=== PATIENT | male | born 1965 | race Caucasian/White ===

== ENCOUNTER → 2019-05-25 09:23 | Outpatient (CLI) | payer BC, OTHER, SELFPAY ==
[2019-05-25 10:13] LABS: Basophils Absolute Auto 0 /uL (0-100); Eosinophils Absolute Auto 200 /uL (0-450); Lymphocytes Absolute Auto 1300 /uL (1100-4500); Neutrophils Absolute Auto 2200 /uL (1500-7000); White Blood Cell Count 4.4 X10^3/uL (4.5-11.0)
[2019-05-25 10:21] LABS: Add Manual Diff / Slide Review NO; Basophils Percent Auto 0.6 % (0-2); Eosinophils Percent Auto 4.5 % (2-4); Hematocrit 45.6 % (41-53); Hemoglobin 15.8 g/dL (13.5-17.5); Lymphocytes Percent Auto 29.4 % (25-40); Mean Corpuscular HGB Conc 34.6 % (30-36); Mean Corpuscular Hemoglobin 31.8 PG (26-34); Mean Corpuscular Volume 92.1 fL (80-100); Monocytes Absolute Auto 600 /uL (0-900); Monocytes Percent Auto 14.5 % (3-14); Platelet Count 266 X10^3/uL (150-400); Red Blood Cell Count 4.95 X10^6/uL (4.5-5.9); Red Cell Distribution Width 13.2 % (11.6-14.8)
[2019-05-25 10:51] LABS: Alanine Aminotransferase 45 IU/L (<50); Albumin 4.3 g/dL (3.5-5.0); Albumin Globulin Ratio 1.7 (1.0-2.8); Alkaline Phosphatase 54 U/L (38-126); Aspartate Aminotransferase 42 IU/L (17-59); BUN Creatinine Ratio 13.6 (6-22); Bilirubin Total 0.6 mg/dL (0.2-1.3); Blood Urea Nitrogen 15 mg/dL (9-20); Calcium 9.8 mg/dL (8.4-10.2); Carbon Dioxide 28 mmol/L (22-32); Chloride 102 mmol/L (98-107); Cholesterol 180 mg/dL (140-199); Estimated Glomerular Filt Rate > 60.0 mL/min (>60); Globulin 2.6 g/dL (1.7-4.1); Glucose 94 mg/dL (70-100); HDL Cholesterol 44 mg/dL (40-60); HEMOLYSIS < 15 (0-50); LDL Cholesterol Calculated 106 mg/dL (<100); Potassium 4.2 mmol/L (3.4-5.1); Sodium 139 mmol/L (137-145); Total Protein 6.9 g/dL (6.3-8.2); Triglycerides 151 mg/dL (35-150)
[2019-05-25 11:03] LABS: Free T3, Triiodothyronine Free 4.51 pg/mL (2.77-5.27); Free T4, Direct Thyroxine 1.07 ng/dL (0.78-2.19)
[2019-05-25 11:15] LABS: Prostate Specific Antigen 0.669 ng/mL (0.10-4.00)
[2019-05-25 11:16] LABS: Thyroid Stimulating Hormone 3.21 uIU/mL (0.47-4.68)
[2019-05-25 11:34] LABS: Creatinine Urine Random 132.5 mg/dL
[2019-05-25 11:39] LABS: Microalbumi Creatinin Ratio Ur 4.5 ug/mg CR (<30); Microalbumin Urine Random < 0.6 mg/dL (0-1.6)
== END ==
PROVIDERS: Family Provider Family Medicine; PCP Nurse Practitioner; Visit Provider Nurse Practitioner
DX: I10 Essential (primary) hypertension (principal); Z00.00 Encounter for general adult medical examination without abnormal findings
CPT/HCPCS: 36415; 80053; 80061; 82043; 82570; 84153; 84439; 84443; 84481; 85025

== ENCOUNTER 2020-05-11 09:40 | Emergency (ER) | payer BC, OTHER, SELFPAY ==
[2020-05-11 09:42] VITALS: BP 128/79; PULSE 65; RESP 14; TEMP 35.9; O2SAT 100; BMI 29.0
[2020-05-11 09:45] VITALS: BP 128/79; PULSE 65; O2SAT 100
[2020-05-11 10:00] VITALS: BP 127/69; PULSE 58; RESP 20; O2SAT 100
--- NOTE | 2020-05-11 10:27 | ED.DIZZY ---
HPI - Dizziness General Chief Complaint: Dizziness Stated Complaint: vertigo x3 days Time Seen by Provider: 05/11/20 10:15 Source: patient Mode of arrival: Ambulatory Limitations: no limitations History of Present Illness HPI Narrative: This is a 54-year-old male who comes to emergency department with complaint of vertigo like symptoms. Patient states that symptoms started Saturday. He states that he woke up with the symptoms. He started feeling better as the day went by went to work at 2:00 p.m. which requires driving down to every it and doing a lot of manual movement and lifting at [employer]. He had some mild nausea but otherwise symptoms resolved. Patient states Saturday morning he woke up in the world was moving. And he had similar symptoms yesterday he tried Benadryl and Tylenol which did help he was able eat a little bit more. He has had 1 prior episode that lasted 1-2 days a year ago. He did have an episode of emesis with the nausea that occurs when he has is vertigo symptoms. He describes it as worsened movement when moving his head if he still or lying flat he does not have any symptoms and they fatigue or resolved. Every time he moves it worsens his symptoms. It will typically fatigued throughout the day but he has had it for 4 days now and came for evaluation. He denies any headache, vision changes, no issues with speech. No numbness, tingling or weakness, no difficulty using his extremities. He denies is dizziness, no syncope or lightheadedness. Has had some fullness in his left ear he did flush his ears and clean them out yesterday but did not improve his symptoms. No chest pain or shortness of breath. No issues with bowel movement or urination. He has not had any falls or injuries. He does take for antihypertensive medications including losartan felodipine, hydrochlorothiazide and spironolactone. Patient does have a history of Mason fundoplication for GERD as well as cholecystectomy. No tobacco, rare alcohol, no illicit he follows with Vanessa kidd for his primary care. Related Data Previous Rx's Medication Instructions Recorded benzoyl peroxide 5 % topical gel 1 applictn TOP BID #42.5 gram 04/06/20 clindamycin phosphate 1 % topical 1 applictn TOP BID #30 gram 04/06/20 gel felodipine 10 mg tablet,extended 10 mg PO DAILY #90 tab 04/06/20 release 24 hr hydrochlorothiazide 25 mg tablet 25 mg PO DAILY #90 tab 04/06/20 spironolactone 25 mg tablet 25 mg PO DAILY #90 tab 04/06/20 valsartan 160 mg tablet 160 mg PO DAILY #90 tab 04/06/20 varicella-zoster glycoE [id number] 0.5 ml IM ONCE #1 each 04/06/20 adj(PF) 50 mcg/0.5 mL IM susp kit irbesartan 300 mg tablet 300 mg PO DAILY #30 tab 04/14/20 meclizine 25 mg PO TID PRN #20 tab 05/11/20 ondansetron HCl [Zofran] 4 mg PO Q6H PRN #10 tab 05/11/20 Allergies Allergy/AdvReac Type Severity Reaction Status Date / Time povidone-iodine Allergy Verified 05/11/20 09:47 [From Betadine] soap [From Betadine] Allergy Verified 05/11/20 09:47 Review of Systems Review of Systems ROS Unobtainable: All systems reviewed & are unremarkable except as noted in HPI and below Patient History Medical History Abnormal liver function test Acne (~1973) Allergic rhinitis Arthritis Barretts esophagus (~2010) Chronic low back pain Dyshidrotic eczema Epididymitis, right Fatigue GERD (gastroesophageal reflux disease) (~2010) Hiatal hernia History of acne Hypertension (~1999) Inguinal hernia Prostatitis, unspecified Situational anxiety Surgical History Anesthesia H/O hernia repair (~1989) History of cholecystectomy (~2011) History of esophagogastroduodenoscopy (EGD) History of Mason fundoplication (~2011) History of vasectomy Family History Father Cancer Hypertension Mother Cancer Brother Hypertension Social History Smoking Status: Never smoker Smoking Status: Never smoker alcohol intake frequency: holidays/special occasions only Substance Use Type: does not use Exam Narrative Exam Narrative: GEN: well nourished, well appearing male, alert and oriented x 3, patient appears to be in mild distress. HEENT: Atraumatic, pupils are equal round reactive to light, extraocular movements are intact, nares are clear, TMs mild opacification bilaterally light reflex is normal on the right decreased on the left and retracted on the left. No erythema. No cerumen bilaterally. TMs are easily visualized. Throat is clear without any exudates, erythema, tonsillar enlargement or uvular deviation, no facial droop. Patient has rotatory nystagmus on the left with Sebewaing-Hallpike. Patient has horizontal nystagmus on EOMI. HINTS otherwise negative. HEART: Regular rate and rhythm without murmur, clicks, rubs. No carotid bruits, pulses are equal in upper and lower extremities LUNGS:Lungs clear to auscultation, no wheezes, rales, crackles, chest moves symmetrically ABD:bowel sounds normal, soft, non-tender, no guarding, rebound, rigidity, no masses noted, no hepatosplenomegaly :No CVA tenderness, [male/female exam] MSCL: Non-tender, no muscle atrophy, muscles strength 5/5 upper and lower extremities, full range of motion, normal gait NEURO:CN 2-12 intact, sensation normal, reflexes 2/4 upper and lower extremities. finger nose finger test normal, heel skinner test normal, romberg normal Initial Vital Signs Initial Vital Signs: Vital Signs Temperature 96.6 F L 05/11/20 09:42 Pulse Rate 65 05/11/20 09:42 Respiratory Rate 14 05/11/20 09:42 Blood Pressure 128/79 05/11/20 09:42 Pulse Oximetry 100 05/11/20 09:42 Scores NIH Stroke Scale Level of Conciousness: Alert, keenly responsive Ask month/age: Answers both questions correctly. Open/close eyes, close hand: Performs both tasks correctly Best gaze horizontal: Normal Visual vitale: No visual loss Facial palsy: Normal symetrical movement Left arm drift: No drift for full 10 sec Right arm drift: No drift for full 10 sec Left leg drift: No drift for full 5 sec Right leg drift: No drift for full 5 sec Limb ataxia: Absent Sensory on face/arms/legs: Normal, no sensory loss Best language: No aphasia, normal Dysarthria: Normal Extinction or inattention: No abnormality Total NIH Stroke scale score: 0 Course Orders Ordered: Discontinued Medications Sodium Chloride (Normal Saline 0.9%) 1,000 mls @ 1,000 mls/hr IV BOLUS ONE Stop: 05/11/20 11:50 Last Infusion: 05/11/20 11:35 Dose: 0 mls/hr Documented by: Admin: 05/11/20 11:02 Dose: 1,000 mls/hr Documented by: MMINOR Meclizine HCl (Meclizine Hcl 12.5 Mg Tablet) 50 mg PO NOW ONE Stop: 05/11/20 10:52 Last Admin: 05/11/20 11:02 Dose: 50 mg Documented by: MMINOR Vital Signs Vital signs: Vital Signs - 8 hr 05/11/20 10:30 05/11/20 11:00 05/11/20 11:30 Pulse Rate 56 L 58 L 72 Respiratory Rate 12 12 31 H Blood Pressure 117/67 121/68 Pulse Oximetry 100 100 MDM - Dizziness Lab Data Attestation: I reviewed the patient's lab results. Result diagrams: 05/11/20 09:10 05/11/20 09:10 Labs: Lab Results 05/11/20 05/11/20 Range/Units 09:10 09:10 WBC 8.5 (4.5-11.0) X10^3/uL RBC 5.10 (4.5-5.9) X10^6/uL Hgb 16.1 (13.5-17.5) g/dL Hct 47.6 (41-53) % MCV 93.3 (80-100) fL MCH 31.5 (26-34) PG MCHC 33.8 (30-36) % RDW 13.0 (11.6-14.8) % Plt Count 302 (150-400) X10^3/uL Neut % (Auto) 77.3 H (50-75) % Lymph % (Auto) 14.6 L (25-40) % Guthrie % (Auto) 7.5 (3-14) % Eos % (Auto) 0.2 L (2-4) % Baso % (Auto) 0.4 (0-2) % Neut # (Auto) 6500 (8402-6695) /uL Lymph # (Auto) 1200 (0201-6641) /uL Guthrie # (Auto) 600 (0-900) /uL Eos # (Auto) 0 (0-450) /uL Baso # (Auto) 0 (0-100) /uL Sodium 137 (137-145) mmol/L Potassium 3.6 (3.4-5.1) mmol/L Chloride 101 (98-107) mmol/L Carbon Dioxide 27 (22-32) mmol/L BUN 19 (9-20) mg/dL Creatinine 1.07 (0.66-1.25) mg/dL Estimated GFR > 60.0 (>60) mL/min BUN/Creatinine Ratio 17.8 (6-22) Glucose 131 H (70-100) mg/dL Calcium 9.9 (8.4-10.2) mg/dL Total Bilirubin 0.8 (0.2-1.3) mg/dL AST 39 (17-59) IU/L ALT 35 (<50) IU/L Alkaline Phosphatase 50 (38-126) U/L Total Protein 8.2 (6.3-8.2) g/dL Albumin 4.6 (3.5-5.0) g/dL Globulin 3.6 (1.7-4.1) g/dL Albumin/Globulin Ratio 1.3 (1.0-2.8) Lipase 50 (23-300) U/L ECG Data Attestation: I personally reviewed and interpreted this ECG as follows: Prior ECG tracings: available for review Interpretation: Sinus rhythm rate of 61, FL 164, QRS of 102 and QTC of 450. No ST elevation depression appreciated. Patient has prior ekg from 04/03/12 which appears similar to today's. MDM Narrative Medical decision making narrative: This is a 54-year-old male who comes in with vertigo starting 3 days ago. Patient has had similar symptoms once before. No other neurologic changes. On physical exam his Shania-Hallpike maneuver is positive for rotatory nystagmus know we discussed he likely has BPPV. His vertigo symptoms follow a typical pattern. Discussed patient may benefit from Keila maneuver and was given written instructions for home as well as referral to ENT. Patient was given meclizine he is unsure if it was helpful is sent a prescription to his pharmacy if he finds it helpful it is available. Discussed return precautions. Discharge Plan Departure Patient Disposition: Home Clinical Impression: Benign paroxysmal positional vertigo Instructions: Benign Paroxysmal Positional Vertigo Activity Restrictions/Additional Instructions: Follow-up with ENT if you continue to have symptoms are not having any improvement. They may do additional testing if they feel it is warranted and they have some interventions that may be helpful. Take meclizine 1-2 tablets every 8 hours as needed for symptoms. You may also take Zofran 1 tablet every 6 hours as needed for nausea. Prescriptin sent to [facility]. Return to the ER for fevers, severe headaches, new vision changes, difficulty with speech, new numbness, tingling or weakness in your extremities, if your falling or feel unsafe, if you are having rapidly worsening symptoms or other new or concerning symptoms. Prescriptions: New meclizine 25 mg tablet 25 mg PO TID PRN (Reason: vertigo) Qty: 20 RF: 0 ondansetron HCl [Zofran] 4 mg tablet 4 mg PO Q6H PRN (Reason: nausea and vomiting) Qty: 10 RF: 0 No Action irbesartan 300 mg tablet 300 mg PO DAILY Qty: 30 RF: 3 benzoyl peroxide 5 % gel 1 applictn TOP BID Qty: 42.5 RF: 3 clindamycin phosphate 1 % gel 1 applictn TOP BID Qty: 30 RF: 3 felodipine 10 mg tablet extended release 24 hr 10 mg PO DAILY Qty: 90 RF: 3 hydrochlorothiazide 25 mg tablet 25 mg PO DAILY Qty: 90 RF: 3 spironolactone 25 mg tablet 25 mg PO DAILY Qty: 90 RF: 3 valsartan 160 mg tablet 160 mg PO DAILY Qty: 90 RF: 3 Shingrix (PF) 50 mcg/0.5 mL suspension for reconstitution 0.5 ml IM ONCE Qty: 1 RF: 0 Referrals: Vanessa Kidd ARNP [Primary Care Provider] - Caleb Champagne MD [Physician] -
[2020-05-11 10:30] VITALS: BP 117/67; PULSE 56; RESP 12; O2SAT 100
[2020-05-11 10:59] LABS: Add Manual Diff / Slide Review NO; Basophils Absolute Auto 0 /uL (0-100); Basophils Percent Auto 0.4 % (0-2); Eosinophils Absolute Auto 0 /uL (0-450); Eosinophils Percent Auto 0.2 % (2-4); Hematocrit 47.6 % (41-53); Hemoglobin 16.1 g/dL (13.5-17.5); Lymphocytes Absolute Auto 1200 /uL (1100-4500); Lymphocytes Percent Auto 14.6 % (25-40); Mean Corpuscular HGB Conc 33.8 % (30-36); Mean Corpuscular Hemoglobin 31.5 PG (26-34); Mean Corpuscular Volume 93.3 fL (80-100); Monocytes Absolute Auto 600 /uL (0-900); Monocytes Percent Auto 7.5 % (3-14); Neutrophils Absolute Auto 6500 /uL (1500-7000); Neutrophils Percent Auto 77.3 % (50-75); Platelet Count 302 X10^3/uL (150-400); White Blood Cell Count 8.5 X10^3/uL (4.5-11.0)
[2020-05-11 11:00] VITALS: BP 121/68; PULSE 58; RESP 12; O2SAT 100
[2020-05-11 11:02] LABS: Alanine Aminotransferase 35 IU/L (<50); Albumin 4.6 g/dL (3.5-5.0); Albumin Globulin Ratio 1.3 (1.0-2.8); Alkaline Phosphatase 50 U/L (38-126); Aspartate Aminotransferase 39 IU/L (17-59); BUN Creatinine Ratio 17.8 (6-22); Bilirubin Total 0.8 mg/dL (0.2-1.3); Blood Urea Nitrogen 19 mg/dL (9-20); Calcium 9.9 mg/dL (8.4-10.2); Carbon Dioxide 27 mmol/L (22-32); Chloride 101 mmol/L (98-107); Estimated Glomerular Filt Rate > 60.0 mL/min (>60); Globulin 3.6 g/dL (1.7-4.1); Glucose 131 mg/dL (70-100); HEMOLYSIS 23 (0-50); Lipase 50 U/L (23-300); Potassium 3.6 mmol/L (3.4-5.1); Sodium 137 mmol/L (137-145); Total Protein 8.2 g/dL (6.3-8.2)
[2020-05-11] MEDS: SODIUM CHLORIDE 0.9% 1,000 ML 1000 ML IV (11:02)
[2020-05-11] MEDS: MECLIZINE HCL 12.5 MG TABLET 50 MG PO (11:02)
[2020-05-11 11:30] VITALS: PULSE 72; RESP 31
== END 2020-05-11 11:40 | disposition home or self-care (01) ==
PROVIDERS: Emergency Provider Emergency Medicine; Family Provider Family Medicine; PCP Nurse Practitioner
DX: H81.10 Benign paroxysmal vertigo, unspecified ear (principal); R11.0 Nausea
CPT/HCPCS: 36415; 80053; 83690; 85025; 93005; 93010; 96360; 99283; 99284

== ENCOUNTER → 2020-06-25 09:21 | Outpatient (CLI) | payer BC, OTHER, SELFPAY ==
[2020-06-25 10:29] LABS: Alanine Aminotransferase 28 IU/L (<50); Albumin Globulin Ratio 1.4 (1.0-2.8); Alkaline Phosphatase 43 U/L (38-126); Aspartate Aminotransferase 32 IU/L (17-59); BUN Creatinine Ratio 19.4 (6-22); Bilirubin Total 0.6 mg/dL (0.2-1.3); Blood Urea Nitrogen 19 mg/dL (9-20); Calcium 8.7 mg/dL (8.4-10.2); Carbon Dioxide 30 mmol/L (22-32); Chloride 107 mmol/L (98-107); Cholesterol 160 mg/dL (140-199); Estimated Glomerular Filt Rate > 60.0 mL/min (>60); Globulin 2.9 g/dL (1.7-4.1); Glucose 94 mg/dL (70-100); HDL Cholesterol 44 mg/dL (40-60); HEMOLYSIS < 15 (0-50); LDL Cholesterol Calculated 97 mg/dL (<100); Potassium 3.7 mmol/L (3.4-5.1); Sodium 139 mmol/L (137-145); Total Protein 6.9 g/dL (6.3-8.2); Triglycerides 96 mg/dL (35-150)
[2020-06-25 10:44] LABS: Free T3, Triiodothyronine Free 3.81 pg/mL (2.77-5.27); Free T4, Direct Thyroxine 1.15 ng/dL (0.78-2.19)
[2020-06-25 10:58] LABS: Thyroid Stimulating Hormone 2.61 uIU/mL (0.47-4.68)
[2020-06-25 10:59] LABS: Prostate Specific Antigen 0.846 ng/mL (0.10-4.00)
[2020-06-27 16:16] LABS: Hep C Virus Ab w/Reflex Quant NEGATIVE s/c (NEGATIVE)
== END ==
PROVIDERS: Family Provider Family Medicine; PCP Nurse Practitioner; Referring Provider Nurse Practitioner; Visit Provider Nurse Practitioner
DX: I10 Essential (primary) hypertension (principal); E78.5 Hyperlipidemia, unspecified; Z79.899 Other long term (current) drug therapy; Z11.59 Encounter for screening for other viral diseases; Z91.89 Other specified personal risk factors, not elsewhere classified
CPT/HCPCS: 36415; 80053; 80061; 84153; 84439; 84443; 84481; 86803

== ENCOUNTER → 2020-06-27 12:10 | Outpatient (CLI) | payer BC, OTHER, SELFPAY ==
[2020-06-27 15:31] LABS: Microalbumin Urine Random 1.3 mg/dL (0-1.6)
[2020-06-27 15:47] LABS: Creatinine Urine Random 419.5 mg/dL
== END ==
PROVIDERS: Family Provider Family Medicine; PCP Nurse Practitioner; Referring Provider Nurse Practitioner; Visit Provider Nurse Practitioner
DX: E78.5 Hyperlipidemia, unspecified (principal); I10 Essential (primary) hypertension; Z79.899 Other long term (current) drug therapy
CPT/HCPCS: 82043; 82570

== ENCOUNTER → 2021-05-29 11:42 | Outpatient (CLI) | payer OTHER, SELFPAY ==
--- NOTE | 2021-05-29 11:43 | DI.RAD.S_ITS ---
PROCEDURE: XR SHOULDER LT MIN 2V INDICATIONS: fall, L shoulder pain and ecchymosis TECHNIQUE: 3 views of the shoulder were acquired. COMPARISON: [facility], CR, XR HUMERUS LT 2V, 05/29/2021, 11:47. FINDINGS: Bones: No fractures or dislocations. Superior subluxation of the humerus in relation to the glenoid. No suspicious bony lesions. Visualized ribs appear intact. Soft tissues: No suspicious soft tissue calcifications. IMPRESSION: No fracture or dislocation. Possible rotator cuff injury. If clinically indicated consider further evaluation with MRI of the shoulder. Dictated by: Santhosh Pro M.D. on 05/29/2021 at 12:13 Approved by: Santhosh Pro M.D. on 05/29/2021 at 12:14
--- NOTE | 2021-05-29 11:43 | DI.RAD.S_ITS ---
PROCEDURE: XR HUMERUS LT 2V INDICATIONS: fall, L shoulder pain and ecchymosis TECHNIQUE: 2 views of the humerus were acquired. COMPARISON: [facility], CR, XR SHOULDER LT MIN 2V, 05/29/2021, 11:47. FINDINGS: Bones: No fractures or dislocations. No suspicious bony lesions. Soft tissues: No suspicious soft tissue calcifications. IMPRESSION: No acute osseous abnormality. Dictated by: Santhosh Pro M.D. on 05/29/2021 at 12:12 Approved by: Santhosh Pro M.D. on 05/29/2021 at 12:13
== END ==
PROVIDERS: Family Provider Family Medicine; PCP Nurse Practitioner; Referring Provider Physician Assistant; Visit Provider Physician Assistant
DX: S49.92XA Unspecified injury of left shoulder and upper arm, initial encounter (principal); X58.XXXA Exposure to other specified factors, initial encounter
CPT/HCPCS: 73030; 73060

== ENCOUNTER → 2021-06-12 11:16 | Outpatient (CLI) | payer OTHER, SELFPAY ==
--- NOTE | 2021-06-12 | DI.MRI.S_ITS ---
PROCEDURE: MR SHOULDER LT WO CON INDICATIONS: TRAUMATIC TEAR OF LEFT ROTATOR CUFF TECHNIQUE: Noncontrast oblique coronal T2 fast spin echo with fat saturation, oblique sagittal T1 spin echo and T2 fast spin echo with fat saturation, axial T1 spin echo and T2 fast spin echo with fat saturation through the shoulder. COMPARISON: None. FINDINGS: Image quality: Some images are degraded by motion artifact. Rotator cuff: Supraspinatus and infraspinatus tendinopathy with full-thickness tears, spanning up to 3.8 cm (i.e. 7-14). Subscapularis tendinopathy with suspected full-thickness tear. Sagittal images demonstrate at least grade 2 supraspinatus muscle atrophy. Reticulated T1 hyperintense signal within the infraspinatus, also compatible with atrophy. Bones and bursae: No bone marrow contusions or fractures. Moderate acromioclavicular joint degeneration with T2 hyperintense signal within the articulation. No os acromiale. Subacromial-subdeltoid bursal versus joint fluid is present. Capsule and soft tissues: The labrum appears maintained. Subluxation of the biceps tendon which attach is to the labrum. Small to moderate glenohumeral joint effusion. IMPRESSION: 1. Supraspinatus and infraspinatus tendinopathy with full-thickness tears as detailed above. 2. Fatty atrophy of the supraspinatus and infraspinatus muscles. 3. Subscapularis tendinopathy with subluxation of the biceps tendon, suggesting full-thickness tear. 4. Small to moderate glenohumeral joint effusion. 5. Subacromial/subdeltoid fluid, which may reflect bursitis versus joint fluid. 6. Moderate AC joint arthrosis. Dictated by: Mickey Mosqueda M.D. on 06/12/2021 at 13:35 Approved by: Mickey Mosqueda M.D. on 06/12/2021 at 13:44
== END ==
PROVIDERS: Family Provider Family Medicine; PCP Nurse Practitioner; Referring Provider Orthopaedic Surgery; Visit Provider Orthopaedic Surgery
DX: S46.012A Strain of muscle(s) and tendon(s) of the rotator cuff of left shoulder, initial encounter (principal); M25.412 Effusion, left shoulder; M19.012 Primary osteoarthritis, left shoulder
CPT/HCPCS: 73221

== ENCOUNTER → 2021-06-22 07:40 | Outpatient (CLI) | payer OTHER, SELFPAY ==
[2021-06-22 08:16] LABS: Hematocrit 44.1 % (41-53); Mean Corpuscular HGB Conc 33.9 % (30-36); Mean Corpuscular Hemoglobin 31.7 PG (26-34); Mean Corpuscular Volume 93.4 fL (80-100); Platelet Count 288 X10^3/uL (150-400); Red Blood Cell Count 4.72 X10^6/uL (4.5-5.9); Red Cell Distribution Width 13.9 % (11.6-14.8); White Blood Cell Count 5.2 X10^3/uL (4.5-11.0)
[2021-06-22 08:44] LABS: Alanine Aminotransferase 28 IU/L (<50); Albumin 4.3 g/dL (3.5-5.0); Albumin Globulin Ratio 1.5 (1.0-2.8); Alkaline Phosphatase 37 U/L (38-126); Aspartate Aminotransferase 31 IU/L (17-59); BUN Creatinine Ratio 18.4 (6-22); Bilirubin Total 0.7 mg/dL (0.2-1.3); Blood Urea Nitrogen 21 mg/dL (9-20); Calcium 9.9 mg/dL (8.4-10.2); Carbon Dioxide 29 mmol/L (22-32); Chloride 103 mmol/L (98-107); Cholesterol 167 mg/dL (140-199); Estimated Glomerular Filt Rate > 60.0 mL/min (>60); Globulin 2.9 g/dL (1.7-4.1); Glucose 94 mg/dL (70-100); HDL Cholesterol 51 mg/dL (40-60); HEMOLYSIS < 15 (0-50); LDL Cholesterol Calculated 94 mg/dL (<100); Potassium 4.2 mmol/L (3.4-5.1); Sodium 138 mmol/L (137-145); Total Protein 7.2 g/dL (6.3-8.2); Triglycerides 109 mg/dL (35-150)
[2021-06-22 09:02] LABS: Creatinine Urine Random 197.7 mg/dL; Free T3, Triiodothyronine Free 3.99 pg/mL (2.77-5.27); Free T4, Direct Thyroxine 1.24 ng/dL (0.78-2.19)
[2021-06-22 09:06] LABS: Microalbumi Creatinin Ratio Ur 14.1 ug/mg CR (<30); Microalbumin Urine Random 2.8 mg/dL (0-1.6)
[2021-06-22 09:16] LABS: Thyroid Stimulating Hormone 2.96 uIU/mL (0.47-4.68)
== END ==
PROVIDERS: Family Provider Family Medicine; PCP Nurse Practitioner; Referring Provider Nurse Practitioner; Visit Provider Nurse Practitioner
DX: E78.5 Hyperlipidemia, unspecified (principal); I10 Essential (primary) hypertension; Z79.899 Other long term (current) drug therapy; Z12.5 Encounter for screening for malignant neoplasm of prostate
CPT/HCPCS: 36415; 80053; 80061; 82043; 82570; 84439; 84443; 84481; 85027; G0103

== ENCOUNTER → 2022-06-16 09:24 | Outpatient (CLI) | payer OTHER, SELFPAY ==
[2022-06-16 10:00] LABS: Add Manual Diff / Slide Review NO; Basophils Absolute Auto 0 /uL (0-100); Basophils Percent Auto 0.9 % (0-2); Eosinophils Absolute Auto 200 /uL (0-450); Eosinophils Percent Auto 4.6 % (2-4); Hematocrit 44.2 % (41-53); Lymphocytes Absolute Auto 1500 /uL (1100-4500); Lymphocytes Percent Auto 34.5 % (25-40); Mean Corpuscular Hemoglobin 31.8 PG (26-34); Mean Corpuscular Volume 93.5 fL (80-100); Monocytes Absolute Auto 600 /uL (0-900); Monocytes Percent Auto 14.8 % (3-14); Neutrophils Absolute Auto 1900 /uL (1500-7000); Neutrophils Percent Auto 45.2 % (50-75); Platelet Count 267 X10^3/uL (150-400); Red Blood Cell Count 4.73 X10^6/uL (4.5-5.9); Red Cell Distribution Width 13.3 % (11.6-14.8); White Blood Cell Count 4.2 X10^3/uL (4.5-11.0)
[2022-06-16 10:28] LABS: Alanine Aminotransferase 32 IU/L (<50); Albumin Globulin Ratio 1.4 (1.0-2.8); Alkaline Phosphatase 45 U/L (38-126); Aspartate Aminotransferase 33 IU/L (17-59); BUN Creatinine Ratio 18.8 (6-22); Bilirubin Total 0.6 mg/dL (0.2-1.3); Blood Urea Nitrogen 21 mg/dL (9-20); Calcium 9.3 mg/dL (8.4-10.2); Carbon Dioxide 30 mmol/L (22-32); Chloride 102 mmol/L (98-107); Cholesterol 161 mg/dL (140-199); Estimated Glomerular Filt Rate > 60 mL/min (>60); Globulin 2.9 g/dL (1.7-4.1); Glucose 95 mg/dL (70-100); HDL Cholesterol 49 mg/dL (40-60); HEMOLYSIS < 15 (0-50); LDL Cholesterol Calculated 100 mg/dL (<100); Potassium 4.4 mmol/L (3.4-5.1); Sodium 137 mmol/L (137-145); Total Protein 6.9 g/dL (6.3-8.2); Triglycerides 62 mg/dL (35-150)
[2022-06-16 10:49] LABS: Free T3, Triiodothyronine Free 3.88 pg/mL (2.77-5.27)
[2022-06-16 11:02] LABS: Thyroid Stimulating Hormone 3.34 uIU/mL (0.47-4.68)
[2022-06-16 13:11] LABS: Creatinine Urine Random 199.2 mg/dL
[2022-06-16 13:15] LABS: Microalbumi Creatinin Ratio Ur 12.5 ug/mg CR (<30); Microalbumin Urine Random 2.5 mg/dL (0-1.6)
== END ==
PROVIDERS: Family Provider Family Medicine; PCP Nurse Practitioner; Referring Provider Nurse Practitioner; Visit Provider Nurse Practitioner
DX: Z00.00 Encounter for general adult medical examination without abnormal findings (principal)
CPT/HCPCS: 36415; 80053; 80061; 82043; 82570; 84439; 84443; 84481; 85025

== ENCOUNTER 2022-08-01 15:44 | Inpatient (IN) | payer OTHER, SELFPAY ==
[2022-08-01] VITALS (11 sets, daily range): BP systolic 148–180; BP diastolic 76–95; PULSE 62–95; RESP 10–30; TEMP 36.1–36.6; O2SAT 98–100; BMI 30.1; BMI 29.9
--- NOTE | 2022-08-01 16:00 | DI.RAD.S_ITS ---
PROCEDURE: XR CHEST 1V INDICATIONS: chest pain TECHNIQUE: One view of the chest was acquired. COMPARISON: [facility], , CHEST 2 VIEW, 07/04/2006, 11:45. FINDINGS: Surgical changes and devices: None. Lungs and pleura: Lungs are clear. No pleural effusions or pneumothorax. Low lung volumes. Mediastinum: Mediastinal contours appear normal. Heart size is normal. Bones and chest wall: No suspicious bony lesions. Overlying soft tissues appear unremarkable. IMPRESSION: Low lung volumes. No acute radiographic abnormality. Dictated by: Kevin Rangel M.D. on 08/01/2022 at 17:06 Approved by: Kevin Rangel M.D. on 08/01/2022 at 17:06
[2022-08-01 16:28] LABS: Add Manual Diff / Slide Review NO; Basophils Absolute Auto 0 /uL (0-100); Basophils Percent Auto 0.3 % (0-2); Eosinophils Absolute Auto 100 /uL (0-450); Eosinophils Percent Auto 0.5 % (2-4); Lymphocytes Absolute Auto 1000 /uL (1100-4500); Lymphocytes Percent Auto 9.3 % (25-40); Mean Corpuscular Hemoglobin 31.5 PG (26-34); Mean Corpuscular Volume 92.7 fL (80-100); Monocytes Absolute Auto 700 /uL (0-900); Monocytes Percent Auto 6.4 % (3-14); Neutrophils Absolute Auto 9200 /uL (1500-7000); Neutrophils Percent Auto 83.5 % (50-75); Platelet Count 270 X10^3/uL (150-400); Prothrombin Time 11.9 SECONDS (10.1-12.7); Red Blood Cell Count 4.74 X10^6/uL (4.5-5.9); Red Cell Distribution Width 13.2 % (11.6-14.8)
[2022-08-01 16:31] LABS: PTT Partial Thromboplastin Tim 30 SECONDS (26-36)
[2022-08-01 16:33] LABS: Alanine Aminotransferase 33 IU/L (<50); Albumin 4.5 g/dL (3.5-5.0); Albumin Globulin Ratio 1.4 (1.0-2.8); Alkaline Phosphatase 61 U/L (38-126); Aspartate Aminotransferase 35 IU/L (17-59); Bilirubin Total 0.6 mg/dL (0.2-1.3); Blood Urea Nitrogen 22 mg/dL (9-20); Calcium 9.3 mg/dL (8.4-10.2); Carbon Dioxide 22 mmol/L (22-32); Chloride 102 mmol/L (98-107); Creatine Kinase 253 U/L (55-170); Estimated Glomerular Filt Rate > 60 mL/min (>60); Globulin 3.3 g/dL (1.7-4.1); Glucose 112 mg/dL (70-100); HEMOLYSIS < 15 (0-50); Magnesium 1.8 mg/dL (1.6-2.3); Potassium 3.6 mmol/L (3.4-5.1); Sodium 135 mmol/L (137-145); Total Protein 7.8 g/dL (6.3-8.2)
[2022-08-01 16:44] LABS: Troponin I < 0.012 ng/mL (0.01-0.034)
[2022-08-01 16:48] LABS: CKMB % Relative Index 0.8 % (1.5-5.0); Creatine Kinase MB 1.95 ng/mL (<2.37)
[2022-08-01 17:09] LABS: Lipase 25844 U/L (23-300)
[2022-08-01] MEDS: PANTOPRAZOLE 40 MG VIAL 80 MG IV (17:16)
--- NOTE | 2022-08-01 17:16 | PC.NURSE ---
Pt declines ASA due to Barretts esophagus. Pt states recent Nitesh procedure to treat heartburn. Physician aware.
[2022-08-01] MEDS: MORPHINE 4 MG/ML INJ IV (17:28)
[2022-08-01 17:30] LABS: COVID19 -Nasal RAPID Negative (Negative)
[2022-08-01] MEDS: ONDANSETRON 4 MG/2 ML INJ IV (17:31)
[2022-08-01 17:37] LABS: Bacteria Urine None Seen; Culture Indicated Urine Cult Not Indicated; RBC Urine None Seen (0-5/HPF); Squamous Epithelial Cell Urine None Seen (0-5/HPF); WBC Urine None Seen (0-5/HPF)
--- NOTE | 2022-08-01 17:49 | DI.US.S_ITS ---
PROCEDURE: US ABDOMEN LIMITED INDICATIONS: pancreatitis TECHNIQUE: Real-time focused scanning was performed of the abdomen, with image documentation. COMPARISON: None. FINDINGS: Gallbladder is been removed. Liver is not completely visualized. Pancreas demonstrates limited visualization. No associated fluid. IMPRESSION: Limited visualization of the pancreas. No visualized adjacent fluid. Dictated by: Ann Grier M.D. on 08/01/2022 at 18:20 Approved by: Ann Grier M.D. on 08/01/2022 at 18:25
--- NOTE | 2022-08-01 18:09 | ED_ITS ---
HPI - Chest Pain General Chief Complaint: Chest Pain Stated Complaint: chest and stomach pains Time Seen by Provider: 08/01/22 17:08 Source: patient Mode of arrival: Ambulatory Limitations: no limitations History of Present Illness HPI narrative: This is a 56 year old male with history of Chinchilla's esophagitis, hypertension on 4 different medications, prior Mason fundoplication and cholecystectomy. Patient states today about 1:00 p.m. he started having epigastric pain radiating towards his back. He denies fevers or chills. He denies radiation elsewhere, denies upper chest pain, no shortness of breath. He states pain was increased when he would take big breaths or burp, patient denies any diarrhea or co nstipation, no black or bloody stools. No urinary symptoms. No new swelling of his extremities. Patient states he has not had heartburn issues since his Mason about 10 years ago but states sort of similar to that but different. Patient states besides the Mason and cholecystectomy which were at the same time he denies other surgeries. He denies aspirin or other blood thinners. No tobacco, occasional alcohol he states he had a couple drinks on SaturdayJuly 30 but does not regularly drink, no illicit. Mom had heart attack at age 64. His primary care Vanessa mccoy. Related Data Previous Rx's Medication Instructions Recorded spironolactone 25 mg tablet 25 mg PO DAILY 90 days #90 tabs 07/11/21 irbesartan 300 mg tablet 300 mg PO DAILY HTN #90 tabs 07/20/21 clindamycin phosphate 1 % topical See Rx Instructions .Route 03/08/22 gel .COMPLEX #30 grams benzoyl peroxide 5 % topical gel See Rx Instructions .Route 07/19/22 (Acne Medication) .COMPLEX #42.5 grams felodipine 10 mg tablet,extended See Rx Instructions .Route 07/19/22 release 24 hr .COMPLEX #90 tabs hydrochlorothiazide 25 mg tablet See Rx Instructions .Route 07/19/22 .COMPLEX #90 tabs Allergies Allergy/AdvReac Type Severity Reaction Status Date / Time povidone-iodine Allergy Verified 06/05/21 08:46 [From Betadine] soap [From Betadine] Allergy Verified 06/05/21 08:46 Review of Systems Review of Systems ROS Unobtainable: All systems reviewed & are unremarkable except as noted in HPI and below Patient History Medical History Abnormal liver function test Acne (~1973) Allergic rhinitis Arthritis Barretts esophagus (~2010) Chronic low back pain Dyshidrotic eczema Epididymitis, right Fatigue GERD (gastroesophageal reflux disease) (~2010) Hiatal hernia History of acne Hypertension (~1999) Inguinal hernia Prostatitis, unspecified Situational anxiety Surgical History Anesthesia H/O hernia repair (~1989) History of cholecystectomy (~2011) History of esophagogastroduodenoscopy (EGD) History of Mason fundoplication (~2011) History of vasectomy Family History Father Cancer Hypertension Mother Cancer Brother Hypertension Social History household members: spouse Smoking Status: Never smoker Smoking Status: Never smoker alcohol intake frequency: holidays/special occasions only Substance Use Type: marijuana Exam Narrative Exam Narrative: GENERAL: Alert and oriented x three, male in mild distress. HEENT: Head normocephalic, atraumatic, EOMI, pupils reactive, face symmetric, moist mucous membranes NECK: Supple, full range of motion CARDIOVASCULAR: Regular rate and rhythm without murmurs, rubs or gallops. RESPIRATORY: Breath sounds equal bilaterally, no wheezes rales or rhonchi. ABDOMEN: Soft, nontender. Normoactive bowel sounds all 4 quadrants. No guarding or rebound, rigidity, no mass, no bruit or pulsatile mass. : No CVA tenderness EXTREMITIES: Normal range of motion, no clubbing or edema. Neurovascularly intact NEUROLOGICAL: Cranial nerves II through XII grossly intact. Moving all extremities SKIN: Warm, dry, no petechiae, no rashes or lesions. Initial Vital Signs Initial Vital Signs: Vital Signs Temperature 97.9 F 08/01/22 15:56 Pulse Rate 87 08/01/22 15:56 Respiratory Rate 18 08/01/22 15:56 Blood Pressure 156/86 H 08/01/22 15:56 Pulse Oximetry 99 08/01/22 15:56 Oxygen Delivery Method Room Air 08/01/22 15:56 Course Orders Ordered: Acetaminophen (Acetaminophen 325 Mg Tablet) 650 mg PO Q6H PRN PRN Reason: Fever/Mild Pain (1-3) Last Admin: 08/02/22 04:03 Dose: 650 mg Documented By: ROMELIA Enoxaparin Sodium (Enoxaparin 40 Mg/0.4 Ml Syringe) 40 mg SUBCUT DAILY [facility] Lactated Ringer's (Lactated Ringers) 1,000 mls @ 200 mls/hr IV CONT LORRAINE Last Admin: 08/02/22 06:40 Dose: 200 mls/hr Documented By: Infusion: 08/02/22 06:40 Dose: 200 mls/hr Documented By: Admin: 08/02/22 02:20 Dose: 200 mls/hr Documented By: Infusion: 08/02/22 02:17 Dose: 200 mls/hr Documented By: Admin: 08/01/22 21:17 Dose: 200 mls/hr Documented By: ROMELIA Ketorolac Tromethamine (Ketorolac 30 Mg/Ml Vial) 15 mg IV Q6H PRN PRN Reason: pain Stop: 08/06/22 21:44 Last Admin: 08/02/22 05:51 Dose: 15 mg Documented By: Admin: 08/01/22 23:34 Dose: 15 mg Documented By: ROMELIA Morphine Sulfate (Morphine 4 Mg/Ml Inj) 4 mg IV Q4HR PRN PRN Reason: Pain, Severe (7-10) Naloxone HCl (Naloxone 0.4 Mg/Ml Vial) 0.2 mg IV Q2MIN PRN PRN Reason: Opiate Reversal Ondansetron HCl (Ondansetron 4 Mg/2 Ml Inj) 4 mg IV Q8HR PRN PRN Reason: Nausea And Vomiting Oxycodone HCl (Oxycodone Ir 5 Mg Tablet) 5 mg PO Q3H PRN PRN Reason: Pain, Moderate (4-6) Simethicone (Simethicone 80 Mg Tablet) 80 mg PO QID PRN PRN Reason: Flatulence Discontinued Medications Aspirin (Aspirin 81 Mg Chew Tab) 324 mg PO NOW ONE Stop: 08/01/22 16:01 Last Admin: 08/01/22 17:11 Dose: Not Given Documented By: FILI Diphenhydramine HCl (Diphenhydramine 50 Mg/Ml Vial) 25 mg IV NOW ONE Stop: 08/01/22 18:52 Last Admin: 08/01/22 19:01 Dose: 25 mg Documented By: AT Sodium Chloride (Normal Saline 0.9%) 1,000 mls @ 1,000 mls/hr IV BOLUS ONE Stop: 08/01/22 19:13 Last Infusion: 08/01/22 20:47 Dose: 1,000 mls/hr Documented By: Admin: 08/01/22 19:03 Dose: 1,000 mls/hr Documented By: AT Ketorolac Tromethamine (Ketorolac 30 Mg/Ml Vial) 15 mg IV NOW ONE Stop: 08/01/22 19:01 Last Admin: 08/01/22 19:28 Dose: 15 mg Documented By: AT Methylprednisolone (Methylprednisolone 125 Mg/2 Ml Vial) 125 mg IV NOW ONE Stop: 08/01/22 18:52 Last Admin: 08/01/22 19:02 Dose: 125 mg Documented By: AT Morphine Sulfate (Morphine 4 Mg/Ml Inj) 4 mg IV NOW ONE Stop: 08/01/22 17:27 Last Admin: 08/01/22 17:28 Dose: 4 mg Documented By: FILI Ondansetron HCl (Ondansetron 4 Mg/2 Ml Inj) 4 mg IV NOW ONE Stop: 08/01/22 17:30 Last Admin: 08/01/22 17:31 Dose: 4 mg Documented By: FILI Pantoprazole Sodium (Pantoprazole 40 Mg Vial) 80 mg IV NOW ONE Stop: 08/01/22 17:09 Last Admin: 08/01/22 17:16 Dose: 80 mg Documented By: FILI Vital Signs Vital signs: Vital Signs - 8 hr 08/01/22 15:56 08/01/22 16:59 08/01/22 16:59 Temperature 97.9 F Pulse Rate 87 83 Respiratory Rate 18 Blood Pressure 156/86 H 172/95 H Pulse Oximetry 99 100 Oxygen Delivery Method Room Air 08/01/22 17:00 08/01/22 17:00 08/01/22 17:30 Temperature Pulse Rate 83 Respiratory Rate Blood Pressure 164/86 H 164/86 H Pulse Oximetry 100 Oxygen Delivery Method Room Air 08/01/22 17:30 08/01/22 17:36 08/01/22 17:36 Temperature Pulse Rate 85 78 Respiratory Rate 15 10 L Blood Pressure 163/87 H Pulse Oximetry 99 100 Oxygen Delivery Method Room Air 08/01/22 17:45 08/01/22 17:45 08/01/22 18:00 Temperature Pulse Rate 85 Respiratory Rate 20 Blood Pressure 180/93 H 164/78 H Pulse Oximetry 99 Oxygen Delivery Method Room Air 08/01/22 18:00 08/01/22 18:30 08/01/22 19:00 Temperature Pulse Rate 82 79 95 H Respiratory Rate 18 18 30 H Blood Pressure Pulse Oximetry 99 98 99 Oxygen Delivery Method Room Air Room Air Room Air 08/01/22 19:01 08/01/22 19:01 Temperature Pulse Rate 90 Respiratory Rate 30 H Blood Pressure 148/81 H Pulse Oximetry 99 Oxygen Delivery Method Room Air MDM - Chest Pain Lab Data 08/02/22 03:55 08/02/22 03:55 Labs: Lab Results 08/01/22 08/01/22 08/01/22 Range/Units 16:10 16:10 16:10 WBC 11.0 (4.5-11.0) X10^3/uL RBC 4.74 (4.5-5.9) X10^6/uL Hgb 15.0 (13.5-17.5) g/dL Hct 44.0 (41-53) % MCV 92.7 (80-100) fL MCH 31.5 (26-34) PG MCHC 34.0 (30-36) % RDW 13.2 (11.6-14.8) % Plt Count 270 (150-400) X10^3/uL Neut % (Auto) 83.5 H (50-75) % Lymph % (Auto) 9.3 L (25-40) % Swisher % (Auto) 6.4 (3-14) % Eos % (Auto) 0.5 L (2-4) % Baso % (Auto) 0.3 (0-2) % Neut # (Auto) 9200 H (6836-8336) /uL Lymph # (Auto) 1000 L (8681-6437) /uL Swisher # (Auto) 700 (0-900) /uL Eos # (Auto) 100 (0-450) /uL Baso # (Auto) 0 (0-100) /uL PT 11.9 (10.1-12.7) SECONDS INR 1.0 (0.9-1.3) APTT 30 (26-36) SECONDS Sodium 135 L (137-145) mmol/L Potassium 3.6 (3.4-5.1) mmol/L Chloride 102 (98-107) mmol/L Carbon Dioxide 22 (22-32) mmol/L BUN 22 H (9-20) mg/dL Creatinine 1.00 (0.66-1.25) mg/dL Estimated GFR > 60 (>60) mL/min BUN/Creatinine Ratio 22.0 (6-22) Glucose 112 H (70-100) mg/dL Calcium 9.3 (8.4-10.2) mg/dL Magnesium 1.8 (1.6-2.3) mg/dL Total Bilirubin 0.6 (0.2-1.3) mg/dL AST 35 (17-59) IU/L ALT 33 (<50) IU/L Alkaline Phosphatase 61 (38-126) U/L Total Creatine Kinase 253 H (55-170) U/L CK-MB (CK-2) 1.95 (<2.37) ng/mL CK-MB (CK-2) Rel Index 0.8 L (1.5-5.0) % Troponin I < 0.012 (0.01-0.034) ng/mL Total Protein 7.8 (6.3-8.2) g/dL Albumin 4.5 (3.5-5.0) g/dL Globulin 3.3 (1.7-4.1) g/dL Albumin/Globulin Ratio 1.4 (1.0-2.8) Triglycerides (35-150) mg/dL Cholesterol (140-199) mg/dL LDL Cholesterol, Calc (<100) mg/dL HDL Cholesterol (40-60) mg/dL Lipase 50496 H (23-300) U/L Urine RBC (0-5/HPF) Urine WBC (0-5/HPF) Ur Squamous Epith Cells (0-5/HPF) Urine Bacteria (None) Ur Culture Indicated? SARS-CoV-2 (PCR) (Negative) 08/01/22 08/01/22 08/01/22 Range/Units 16:10 17:00 17:06 WBC (4.5-11.0) X10^3/uL RBC (4.5-5.9) X10^6/uL Hgb (13.5-17.5) g/dL Hct (41-53) % MCV (80-100) fL MCH (26-34) PG MCHC (30-36) % RDW (11.6-14.8) % Plt Count (150-400) X10^3/uL Neut % (Auto) (50-75) % Lymph % (Auto) (25-40) % Swisher % (Auto) (3-14) % Eos % (Auto) (2-4) % Baso % (Auto) (0-2) % Neut # (Auto) (8530-7880) /uL Lymph # (Auto) (6721-2738) /uL Swisher # (Auto) (0-900) /uL Eos # (Auto) (0-450) /uL Baso # (Auto) (0-100) /uL PT (10.1-12.7) SECONDS INR (0.9-1.3) APTT (26-36) SECONDS Sodium (137-145) mmol/L Potassium (3.4-5.1) mmol/L Chloride (98-107) mmol/L Carbon Dioxide (22-32) mmol/L BUN (9-20) mg/dL Creatinine (0.66-1.25) mg/dL Estimated GFR (>60) mL/min BUN/Creatinine Ratio (6-22) Glucose (70-100) mg/dL Calcium (8.4-10.2) mg/dL Magnesium (1.6-2.3) mg/dL Total Bilirubin (0.2-1.3) mg/dL AST (17-59) IU/L ALT (<50) IU/L Alkaline Phosphatase (38-126) U/L Total Creatine Kinase (55-170) U/L CK-MB (CK-2) (<2.37) ng/mL CK-MB (CK-2) Rel Index (1.5-5.0) % Troponin I (0.01-0.034) ng/mL Total Protein (6.3-8.2) g/dL Albumin (3.5-5.0) g/dL Globulin (1.7-4.1) g/dL Albumin/Globulin Ratio (1.0-2.8) Triglycerides 99 (35-150) mg/dL Cholesterol 171 (140-199) mg/dL LDL Cholesterol, Calc 95 (<100) mg/dL HDL Cholesterol 56 (40-60) mg/dL Lipase (23-300) U/L Urine RBC None seen (0-5/HPF) Urine WBC None seen (0-5/HPF) Ur Squamous Epith Cells None seen (0-5/HPF) Urine Bacteria None seen (None) Ur Culture Indicated? Cult not indicated SARS-CoV-2 (PCR) Negative (Negative) 08/01/22 Range/Units 18:15 WBC (4.5-11.0) X10^3/uL RBC (4.5-5.9) X10^6/uL Hgb (13.5-17.5) g/dL Hct (41-53) % MCV (80-100) fL MCH (26-34) PG MCHC (30-36) % RDW (11.6-14.8) % Plt Count (150-400) X10^3/uL Neut % (Auto) (50-75) % Lymph % (Auto) (25-40) % Swisher % (Auto) (3-14) % Eos % (Auto) (2-4) % Baso % (Auto) (0-2) % Neut # (Auto) (3409-6373) /uL Lymph # (Auto) (1991-7898) /uL Swisher # (Auto) (0-900) /uL Eos # (Auto) (0-450) /uL Baso # (Auto) (0-100) /uL PT (10.1-12.7) SECONDS INR (0.9-1.3) APTT (26-36) SECONDS Sodium (137-145) mmol/L Potassium (3.4-5.1) mmol/L Chloride (98-107) mmol/L Carbon Dioxide (22-32) mmol/L BUN (9-20) mg/dL Creatinine (0.66-1.25) mg/dL Estimated GFR (>60) mL/min BUN/Creatinine Ratio (6-22) Glucose (70-100) mg/dL Calcium (8.4-10.2) mg/dL Magnesium (1.6-2.3) mg/dL Total Bilirubin (0.2-1.3) mg/dL AST (17-59) IU/L ALT (<50) IU/L Alkaline Phosphatase (38-126) U/L Total Creatine Kinase (55-170) U/L CK-MB (CK-2) (<2.37) ng/mL CK-MB (CK-2) Rel Index (1.5-5.0) % Troponin I < 0.012 (0.01-0.034) ng/mL Total Protein (6.3-8.2) g/dL Albumin (3.5-5.0) g/dL Globulin (1.7-4.1) g/dL Albumin/Globulin Ratio (1.0-2.8) Triglycerides (35-150) mg/dL Cholesterol (140-199) mg/dL LDL Cholesterol, Calc (<100) mg/dL HDL Cholesterol (40-60) mg/dL Lipase (23-300) U/L Urine RBC (0-5/HPF) Urine WBC (0-5/HPF) Ur Squamous Epith Cells (0-5/HPF) Urine Bacteria (None) Ur Culture Indicated? SARS-CoV-2 (PCR) (Negative) Urine Dip Bedside Urine Glucose Negative Bedside Urine Bilirubin - Negative Bedside Urine Ketone +++ 80 Urine Specific [place] 1.025 Bedside Urine Occult Blood - Negative Bedside Urine pH 5.5 Bedside Urine Protein +/- 15 Bedside Urine Urobilinogen - Negative Bedside Urine Nitrite - Negative Bedside Urine Leukocytes - Negative Esterase Imaging Data US - abdomen: Radiologist's Impression: [place] [address] Ultrasound Report Signed Patient: Jigar Cooper MR#: [id number] : 1965 Acct:[id number] Age/Sex: 56 / M Date of Service: 08/01/22 Loc: ED Accession Number: [id number] ?? Procedure: US abdomen limited Ordering Provider: Ira Tatum D.O. PROCEDURE: US ABDOMEN LIMITED ? INDICATIONS:? pancreatitis ? TECHNIQUE:? Real-time focused scanning was performed of the abdomen, with image documentation.? ? COMPARISON:? None. ? FINDINGS:? Gallbladder is been removed.? Liver is not completely visualized.? Pancreas demonstrates limited visualization.? No associated fluid. ? IMPRESSION:? Limited visualization of the pancreas.? No visualized adjacent fluid. ? ? Dictated by: Ann Grier M.D. on 08/01/2022 at 18:20 ? ? Approved by: Ann Grier M.D. on 08/01/2022 at 18:25?? CT scan - abdomen/pelvis: Radiologist's Impression: [address] [address] [address] Scan Report Signed Patient: Jigar Cooper MR#: [id number] : 1965 Acct:[id number] Age/Sex: 56 / M Date of Service: 08/01/22 Loc: ED Accession Number: [id number] ?? Procedure: CT abdomen pelvis w con Ordering Provider: Ira Tatum D.O. PROCEDURE:? CT ABDOMEN PELVIS W CON ? INDICATIONS:? pancreatitis, ?CBD changes ? TECHNIQUE:? After the administration of oral and IV contrast, axial sections were acquired from the lung bases to the pubic symphysis.? Coronal and sagittal reformats were performed.? For radiation dose reduction, the following was used:? automated exposure control, adjustment of mA and/or kV according to patient size. ? COMPARISON:? [facility], , US ABDOMEN LIMITED, 08/01/2022, 18:03. ? FINDINGS:? Image quality:? Excellent.? ? Lung bases:? Unremarkable.? ? Heart:? No significant findings. ? ? ABDOMEN: Liver:? Hepatic steatosis is present.? Scattered low-attenuation foci are present the largest most suggestive of simple cysts. Gallbladder:? Removed.? ? Biliary ducts:? Common bile duct and pancreatic ducts demonstrate no dilation. Pancreas:? Pancreatic fatty infiltration is present.? There is mild appearance of peripancreatic edema and inflammatory change.? No visualized pseudocyst or other organized collection. Spleen:? Unremarkable.? ? Adrenal Glands:? Unremarkable.? ? Kidneys and Ureters:? Bilateral renal parapelvic cysts are present. ? Stomach and Bowel:? Stomach, small bowel loops, and colon are unremarkable.? Peritoneum:? No abnormal intraperitoneal fluid.? No free air.? ? Ventral Wall: ? No hernia.? Abdominal Nodes:? No retroperitoneal or mesenteric adenopathy by size criteria.? Vessels:? Aorta and inferior vena cava are normal in size.? ? PELVIS: Pelvic Organs:? Unremarkable.? ? Bladder:? Unremarkable.? ? Pelvic Nodes: No enlarged lymph nodes.? Miscellaneous: No inguinal hernias are seen. ? ? ? Bones:? Unremarkable.? IMPRESSION:? ? Pancreatic inflammatory change most consistent pancreatitis.? No ductal dilation or pseudocysts. ? ? Dictated by: Ann Grier M.D. on 08/01/2022 at 19:44 ? ? Approved by: Ann Grier M.D. on 08/01/2022 at 19:46?? ECG Data Attestation: I personally reviewed and interpreted this ECG as follows: Prior ECG tracings: available for review Interpretation: Rhythm rate 85 AR 154 QRS of 94 QTC 473. No acute ST changes appreciated. No change from prior 2019. MDM Narrative Medical decision making narrative: This is a 56-year-old male who comes emergency department with complaint of sudden onset epigastric pain that started today. Patient has had a history of Mason fundoplication and cholecystectomy he states cholecystectomy was cause he would had episodes where he would feel unwell on and off throughout the day but never found a source he states after they took his gallbladder out it did seem to help and Dr. Dowell the surgeon that took it out told him he did not have any stones but it was not a healthy gallbladder. Patient's workup today including chest x-ray, EKG and lab work shows pancreatitis with a lipase of 25,000. Normal bilirubin, AST ALT. Total CK is a little elevated to 53 troponin was negative. Renal function, electrolytes, CBC and coags, shows slight leftward shift but no other change. Chest x-ray was negative. Abdominal ultrasound was ordered to evaluate for any common bile duct dilation or other changes. Patient denies regular active alcohol use but states he did have a couple drinks several days ago. He notes his gallbladder has been removed in the past. Patient is still quite concerned about cardiac cause although his symptoms are not as consistent. Will repeat troponin and EKG he does have some risk factors of hypertension his mom had an ND in her 60s but discussed with patient his symptoms with epigastric pain radiating towards his back with an elevated lipase are quite consistent with that sort of picture. Repeat troponin is negative. CT abdomen pelvis shows pancreatic changes but without need biliary ductal changes or other changes requiring transfer. Spoke with hospitalist Dr. Perez who accepts. Discharge Plan Departure Patient Disposition: Admitted As Inpatient Clinical Impression: Pancreatitis Admit Date/Time: 08/01/22 20:08 Admit Provider: Jett Perez
--- NOTE | 2022-08-01 18:40 | DI.CT.S_ITS ---
PROCEDURE: CT ABDOMEN PELVIS W CON INDICATIONS: pancreatitis, ?CBD changes TECHNIQUE: After the administration of oral and IV contrast, axial sections were acquired from the lung bases to the pubic symphysis. Coronal and sagittal reformats were performed. For radiation dose reduction, the following was used: automated exposure control, adjustment of mA and/or kV according to patient size. COMPARISON: [facility], , ABDOMEN LIMITED, 08/01/2022, 18:03. FINDINGS: Image quality: Excellent. Lung bases: Unremarkable. Heart: No significant findings. ABDOMEN: Liver: Hepatic steatosis is present. Scattered low-attenuation foci are present the largest most suggestive of simple cysts. Gallbladder: Removed. Biliary ducts: Common bile duct and pancreatic ducts demonstrate no dilation. Pancreas: Pancreatic fatty infiltration is present. There is mild appearance of peripancreatic edema and inflammatory change. No visualized pseudocyst or other organized collection. Spleen: Unremarkable. Adrenal Glands: Unremarkable. Kidneys and Ureters: Bilateral renal parapelvic cysts are present. Stomach and Bowel: Stomach, small bowel loops, and colon are unremarkable. Peritoneum: No abnormal intraperitoneal fluid. No free air. Ventral Wall: No hernia. Abdominal Nodes: No retroperitoneal or mesenteric adenopathy by size criteria. Vessels: Aorta and inferior vena cava are normal in size. PELVIS: Pelvic Organs: Unremarkable. Bladder: Unremarkable. Pelvic Nodes: No enlarged lymph nodes. Miscellaneous: No inguinal hernias are seen. Bones: Unremarkable. IMPRESSION: Pancreatic inflammatory change most consistent pancreatitis. No ductal dilation or pseudocysts. Dictated by: Ann Grier M.D. on 08/01/2022 at 19:44 Approved by: Ann Grier M.D. on 08/01/2022 at 19:46
[2022-08-01 18:47] LABS: Troponin I < 0.012 ng/mL (0.01-0.034)
[2022-08-01] MEDS: diphenhydrAMINE 50 MG/ML VIAL 25 MG IV (19:01)
[2022-08-01] MEDS: methylPREDNISolone 125 MG/2 ML VIAL IV (19:02)
[2022-08-01] MEDS: SODIUM CHLORIDE 0.9% 1,000 ML 1000 ML IV (19:03)
[2022-08-01] MEDS: KETOROLAC 30 MG/ML VIAL 15 MG IV ×2 (19:28→23:34)
[2022-08-01 20:39] LABS: Cholesterol 171 mg/dL (140-199); HDL Cholesterol 56 mg/dL (40-60); LDL Cholesterol Calculated 95 mg/dL (<100); Triglycerides 99 mg/dL (35-150)
--- NOTE | 2022-08-01 20:54 | PM.HP.1 ---
History of Present Illness History of Present Illness Date Patient Seen: 08/01/22 Time Patient Seen: 22:00 Chief complaint: chest and stomach pains Narrative: Mr. Cooper is a 56M with PMH of HTN, Jackson's, GERD, s/p Niseem fundoplication and cholecystectomy who presents with epigastric pain radiation to his back. No fevers/chills. No vomiting, diarrhea, blody stools. Olga was a decade ago and has controlled his heartburn well. He does not regularly drink alcohol, but had a couple drinks a two days ago along with a portion of an edible. He has had no new medications and has taken his blood pressure medications for years, he does take HCTZ. His recently did buy some pill supplements, but he is not sure the ingredients in these and will try to get the information. He states he intermittently has difficulty belching after the Mason's procedure, and this also occurred today. In the ED workup was done, vitals notable for afebrile, heart rate in 80s, blood pressure 150s/80s. Labs notable for WBC 11, hgb 15, plts 270. Creatinine 1.00. Lipase 59823. AST/ALT 35/33, bili 0.6. Trop negative x2. CT abdomen showed pancreatic inflammatory changes with no dutal dilation or pseudocysts. He was given fluids and pain medications and admitted for further treatment. Patient History Medical History Abnormal liver function test Acne (~1973) Allergic rhinitis Arthritis Barretts esophagus (~2010) Chronic low back pain Dyshidrotic eczema Epididymitis, right Fatigue GERD (gastroesophageal reflux disease) (~2010) Hiatal hernia History of acne Hypertension (~1999) Inguinal hernia Prostatitis, unspecified Situational anxiety Surgical History Anesthesia H/O hernia repair (~1989) History of cholecystectomy (~2011) History of esophagogastroduodenoscopy (EGD) History of Mason fundoplication (~2011) History of vasectomy Family & Social History Family History Father Cancer Hypertension Mother Cancer Brother Hypertension Safety & Behavioral: Feels Safe in Current Yes Environment Been Physically Hurt or No Threatened By a Person Tobacco & Substance use: Smoking Status Never smoker alcohol intake frequency holiday/special occasion Substance Use Type marijuana Meds Home Medications and Allergies Home Medications Medication Instructions Recorded Confirmed Type spironolactone 25 mg tablet 25 mg PO DAILY 90 days #90 tabs 07/11/21 08/01/22 Rx irbesartan 300 mg tablet 300 mg PO DAILY HTN #90 tabs 07/20/21 08/01/22 Rx clindamycin phosphate 1 % topical See Rx Instructions .Route 03/08/22 08/01/22 Rx gel .COMPLEX #30 grams benzoyl peroxide 5 % topical gel See Rx Instructions .Route 07/19/22 08/01/22 Rx (Acne Medication) .COMPLEX #42.5 grams felodipine 10 mg tablet,extended See Rx Instructions .Route 07/19/22 08/01/22 Rx release 24 hr .COMPLEX #90 tabs hydrochlorothiazide 25 mg tablet See Rx Instructions .Route 07/19/22 08/01/22 Rx .COMPLEX #90 tabs Allergies Allergy/AdvReac Type Severity Reaction Status Date / Time povidone-iodine Allergy Verified 06/05/21 08:46 [From Betadine] soap [From Betadine] Allergy Verified 06/05/21 08:46 Review of Systems Review of Systems Narrative: 14 systems reviewed and negative aside from what is noted in HPI Exam Vital Signs (past 8 hours): - 08/01/22 15:56 08/01/22 16:59 08/01/22 16:59 Temperature 97.9 F Pulse Rate 87 83 Respiratory Rate 18 Blood Pressure 156/86 H 172/95 H Pulse Oximetry 99 100 Oxygen Delivery Method Room Air 08/01/22 17:00 08/01/22 17:00 08/01/22 17:30 Temperature Pulse Rate 83 Respiratory Rate Blood Pressure 164/86 H 164/86 H Pulse Oximetry 100 Oxygen Delivery Method Room Air 08/01/22 17:30 08/01/22 17:36 08/01/22 17:36 Temperature Pulse Rate 85 78 Respiratory Rate 15 10 L Blood Pressure 163/87 H Pulse Oximetry 99 100 Oxygen Delivery Method Room Air 08/01/22 17:45 08/01/22 17:45 08/01/22 18:00 Temperature Pulse Rate 85 Respiratory Rate 20 Blood Pressure 180/93 H 164/78 H Pulse Oximetry 99 Oxygen Delivery Method Room Air 08/01/22 18:00 08/01/22 18:30 08/01/22 19:00 Temperature Pulse Rate 82 79 95 H Respiratory Rate 18 18 30 H Blood Pressure Pulse Oximetry 99 98 99 Oxygen Delivery Method Room Air Room Air Room Air 08/01/22 19:01 08/01/22 19:01 Temperature Pulse Rate 90 Respiratory Rate 30 H Blood Pressure 148/81 H Pulse Oximetry 99 Oxygen Delivery Method Room Air Oxygen Delivery Method Room Air Narrative Exam Narrative: GEN: distress from pain HEENT: moist mucous membranes, PERRL NECK: trachea midline, no JVD PULM: clear bilaterally, no wheezes, rhonchi, rales CV: regular, rate, and rhythm, no murmurs ABD: soft, +epigastric tenderness, normal bowel sounds, no rebound/guarding EXT: warm and well perfused, with no edema NEURO: awake, alert, oriented Objective Labs 08/01/22 16:10 08/01/22 16:10 Labs: Laboratory Results - last 24 hr 08/01/22 08/01/22 08/01/22 16:10 16:10 16:10 WBC 11.0 RBC 4.74 Hgb 15.0 Hct 44.0 MCV 92.7 MCH 31.5 MCHC 34.0 RDW 13.2 Plt Count 270 Neut % (Auto) 83.5 H Lymph % (Auto) 9.3 L [place] % (Auto) 6.4 Eos % (Auto) 0.5 L Baso % (Auto) 0.3 Neut # (Auto) 9200 H Lymph # (Auto) 1000 L [place] # (Auto) 700 Eos # (Auto) 100 Baso # (Auto) 0 PT 11.9 INR 1.0 APTT 30 Sodium 135 L Potassium 3.6 Chloride 102 Carbon Dioxide 22 BUN 22 H Creatinine 1.00 Estimated GFR > 60 BUN/Creatinine Ratio 22.0 Glucose 112 H Calcium 9.3 Magnesium 1.8 Total Bilirubin 0.6 AST 35 ALT 33 Alkaline Phosphatase 61 Total Creatine Kinase 253 H CK-MB (CK-2) 1.95 CK-MB (CK-2) Rel Index 0.8 L Troponin I < 0.012 Total Protein 7.8 Albumin 4.5 Globulin 3.3 Albumin/Globulin Ratio 1.4 Triglycerides Cholesterol LDL Cholesterol, Calc HDL Cholesterol Lipase 97239 H Urine RBC Urine WBC Ur Squamous Epith Cells Urine Bacteria Ur Culture Indicated? SARS-CoV-2 (PCR) 08/01/22 08/01/22 08/01/22 16:10 17:00 17:06 WBC RBC Hgb Hct MCV MCH MCHC RDW Plt Count Neut % (Auto) Lymph % (Auto) [place] % (Auto) Eos % (Auto) Baso % (Auto) Neut # (Auto) Lymph # (Auto) [place] # (Auto) Eos # (Auto) Baso # (Auto) PT INR APTT Sodium Potassium Chloride Carbon Dioxide BUN Creatinine Estimated GFR BUN/Creatinine Ratio Glucose Calcium Magnesium Total Bilirubin AST ALT Alkaline Phosphatase Total Creatine Kinase CK-MB (CK-2) CK-MB (CK-2) Rel Index Troponin I Total Protein Albumin Globulin Albumin/Globulin Ratio Triglycerides 99 Cholesterol 171 LDL Cholesterol, Calc 95 HDL Cholesterol 56 Lipase Urine RBC None seen Urine WBC None seen Ur Squamous Epith Cells None seen Urine Bacteria None seen Ur Culture Indicated? Cult not indicated SARS-CoV-2 (PCR) Negative 08/01/22 18:15 WBC RBC Hgb Hct MCV MCH MCHC RDW Plt Count Neut % (Auto) Lymph % (Auto) [place] % (Auto) Eos % (Auto) Baso % (Auto) Neut # (Auto) Lymph # (Auto) [place] # (Auto) Eos # (Auto) Baso # (Auto) PT INR APTT Sodium Potassium Chloride Carbon Dioxide BUN Creatinine Estimated GFR BUN/Creatinine Ratio Glucose Calcium Magnesium Total Bilirubin AST ALT Alkaline Phosphatase Total Creatine Kinase CK-MB (CK-2) CK-MB (CK-2) Rel Index Troponin I < 0.012 Total Protein Albumin Globulin Albumin/Globulin Ratio Triglycerides Cholesterol LDL Cholesterol, Calc HDL Cholesterol Lipase Urine RBC Urine WBC Ur Squamous Epith Cells Urine Bacteria Ur Culture Indicated? SARS-CoV-2 (PCR) Assessment & Plan Assessment & Plan narrative: 1. Acute pancreatitis -presents with abdominal pain, lipase over 25k, and inflammatory changes on imaging -normal LFTs, and history of gallbladder removal, no imaging evidence of recent stone -occassional EtOH use, but no abuse history, doubt etiology -check lipids, triglycerides -normal calcium -possible etiology of HCTZ medication, will discontinue for now -patient recently started a supplement, unclear which one, will try to have family bring in information -IV fluid with LR -NPO for now and advance diet as able -ordered for pain regimen, and anti-nausea medications 2. Hypertension -hold oral medications tonight, likely can start tomorrow if symptoms improved -consider discontinue hctz 3. GERD, jackson's s/p mason fundoplication with gas bloat syndrome symptoms -npo for now -restart PPI in AM if symptoms improved -simethicone prn I have discussed patient care with the ED physician and bedside nurse. I have gathered history of discussed plan with the patient. I have reviewed, labs and CT imaging. CODE: Full Proxy: Ghada Maldonadoshaun Cooper, Time Spent With Patient Critical Care time: I spent a total of [] minutes of critical care time on this patient's care today; this time is exclusive of procedural time. Quality MIPS - Meds 'Current medications' to include all prescriptions, [id number] products, herbals, cannabis/cannabidiol products, and vitamin/mineral/dietary (nutritional) supplements. I have utilized all available resources to obtain, update, or review the patient?s current medications. [If Yes, STOP here]: Yes
[2022-08-01] MEDS: LACTATED RINGERS 1,000 ML 200 ML IV (21:17)
[2022-08-02] VITALS: BP 148/71; PULSE 79; RESP 17; TEMP 36.7; O2SAT 94
[2022-08-02] MEDS: LACTATED RINGERS 1,000 ML 200 ML IV ×2 (02:20→06:40)
[2022-08-02 04:00] VITALS: BP 150/79; PULSE 80; RESP 17; TEMP 36.4; O2SAT 97
[2022-08-02] MEDS: ACETAMINOPHEN 325 MG TABLET 650 MG PO ×2 (04:03→21:04)
[2022-08-02 04:23] LABS: Add Manual Diff / Slide Review NO; Basophils Absolute Auto 0 /uL (0-100); Basophils Percent Auto 0.1 % (0-2); Eosinophils Absolute Auto 0 /uL (0-450); Hematocrit 42.8 % (41-53); Hemoglobin 14.7 g/dL (13.5-17.5); Lymphocytes Absolute Auto 500 /uL (1100-4500); Lymphocytes Percent Auto 4.7 % (25-40); Mean Corpuscular HGB Conc 34.3 % (30-36); Mean Corpuscular Hemoglobin 31.6 PG (26-34); Mean Corpuscular Volume 92.2 fL (80-100); Monocytes Absolute Auto 100 /uL (0-900); Monocytes Percent Auto 0.8 % (3-14); Neutrophils Absolute Auto 9800 /uL (1500-7000); Neutrophils Percent Auto 94.4 % (50-75); Platelet Count 248 X10^3/uL (150-400); Red Blood Cell Count 4.64 X10^6/uL (4.5-5.9); Red Cell Distribution Width 13.3 % (11.6-14.8); White Blood Cell Count 10.3 X10^3/uL (4.5-11.0)
[2022-08-02 04:59] LABS: Alanine Aminotransferase 31 IU/L (<50); Albumin 3.9 g/dL (3.5-5.0); Albumin Globulin Ratio 1.3 (1.0-2.8); Alkaline Phosphatase 50 U/L (38-126); Aspartate Aminotransferase 31 IU/L (17-59); Bilirubin Total 0.6 mg/dL (0.2-1.3); Blood Urea Nitrogen 18 mg/dL (9-20); Calcium 8.5 mg/dL (8.4-10.2); Chloride 103 mmol/L (98-107); Estimated Glomerular Filt Rate > 60 mL/min (>60); Globulin 3.1 g/dL (1.7-4.1); HEMOLYSIS < 15 (0-50); Potassium 4.2 mmol/L (3.4-5.1); Sodium 135 mmol/L (137-145)
[2022-08-02 05:05] LABS: Carbon Dioxide 25 mmol/L (22-32); Glucose 141 mg/dL (70-100)
[2022-08-02 05:16] LABS: Lipase 2180 U/L (23-300)
[2022-08-02] MEDS: KETOROLAC 30 MG/ML VIAL 15 MG IV ×3 (05:51→18:36)
[2022-08-02 08:00] VITALS: BP 152/79; PULSE 86; RESP 20; TEMP 36.9; O2SAT 97
[2022-08-02] MEDS: ENOXAPARIN 40 MG/0.4 ML SYRINGE SUBCUT (08:20)
[2022-08-02 12:09] VITALS: BP 158/83; PULSE 83; RESP 20; TEMP 36.8; O2SAT 97
--- NOTE | 2022-08-02 12:41 | CM.DANOTE ---
DCP: Case received, EMR reviewed and met with patient. Introduced self and role. Was able to obtain information regarding patient's baseline activity status prior to hospitalization. DCP assessment completed with information currently available. Patient is a 56 year old male who admitted yesterday evening to the care of the hospitalist team. PCP: ROSALBA Oliva. Payer: confirmed: [facility]. Patient came to the hospital via private vehicle secondary to having epigastric pain radiating towards his back. Patient was diagnosed with acute pancreatitis. Met with patient in his room. He is alert and oriented, confirmed that he resides in [place] with spouse, Ghada. He is independent at his baseline, he had been walking in the hallway with staff. P: DCP to continue to follow. Plan at this time is home when deemed medically stable. Radha Alvarado RN/Fishing Accessories Maker Discharge Planning/Care Management CM Discharge Assessment Start: 08/02/22 12:39 Freq: Status: Active Protocol: Document 08/02/22 12:40 (Rec: 08/02/22 12:41 [id number]) Discharge Planning Assessment Assigned Wares Sorter Radha Alvarado RN/Fishing Accessories Maker Advance Directives? No History Provided By Patient,Medical Record Prior Living Arrangements House Household Members spouse Type of transporation used prior to Drives own vehicle admit Independent with ADL's Yes Is patient alert and oriented? Yes Caregiver for Another No Barriers to Discharge No Discharge Plan Home Transportation Arrangement Spouse Referrals Initiated None needed Whiteboard Updated in Patient Room with Yes name and ext. # of Wares Sorter Review Status In Process Next Review Type Continued Stay Review
--- NOTE | 2022-08-02 15:15 | P.PN_ITS ---
Subjective Subjective Interval history: 56 year old male admitted with pancreatitis. His lipase was much improved today. His pain is improved today, tolerating clears and would like to try some low fat diet this evening. He is still receiving pain medications, which do help. No fevers, chills. Exam Vital Signs (past 8 hours): - 08/02/22 08:00 08/02/22 12:09 Temperature 98.5 F 98.3 F Pulse Rate 86 83 Respiratory Rate 20 20 Blood Pressure 152/79 H 158/83 H Pulse Oximetry 97 97 Oxygen Flow Rate 0 0 Oxygen Delivery Method Room Air Oxygen Flow Rate 0 Narrative Exam Narrative: GEN: distress from pain HEENT: moist mucous membranes, PERRL NECK: trachea midline, no JVD PULM: clear bilaterally, no wheezes, rhonchi, rales CV: regular, rate, and rhythm, no murmurs ABD: soft, +epigastric tenderness fairly mild, normal bowel sounds, no rebound/guarding EXT: warm and well perfused, with no edema NEURO: awake, alert, oriented Objective Labs 08/02/22 03:55 08/02/22 03:55 Labs: Laboratory Results - last 24 hr 08/01/22 08/01/22 08/01/22 16:10 16:10 16:10 WBC 11.0 RBC 4.74 Hgb 15.0 Hct 44.0 MCV 92.7 MCH 31.5 MCHC 34.0 RDW 13.2 Plt Count 270 Neut % (Auto) 83.5 H Lymph % (Auto) 9.3 L [place] % (Auto) 6.4 Eos % (Auto) 0.5 L Baso % (Auto) 0.3 Neut # (Auto) 9200 H Lymph # (Auto) 1000 L Dillon # (Auto) 700 Eos # (Auto) 100 Baso # (Auto) 0 PT 11.9 INR 1.0 APTT 30 Sodium 135 L Potassium 3.6 Chloride 102 Carbon Dioxide 22 BUN 22 H Creatinine 1.00 Estimated GFR > 60 BUN/Creatinine Ratio 22.0 Glucose 112 H Calcium 9.3 Magnesium 1.8 Total Bilirubin 0.6 AST 35 ALT 33 Alkaline Phosphatase 61 Total Creatine Kinase 253 H CK-MB (CK-2) 1.95 CK-MB (CK-2) Rel Index 0.8 L Troponin I < 0.012 Total Protein 7.8 Albumin 4.5 Globulin 3.3 Albumin/Globulin Ratio 1.4 Triglycerides Cholesterol LDL Cholesterol, Calc HDL Cholesterol Lipase 98926 H Urine RBC Urine WBC Ur Squamous Epith Cells Urine Bacteria Ur Culture Indicated? SARS-CoV-2 (PCR) 08/01/22 08/01/22 08/01/22 16:10 17:00 17:06 WBC RBC Hgb Hct MCV MCH MCHC RDW Plt Count Neut % (Auto) Lymph % (Auto) [place] % (Auto) Eos % (Auto) Baso % (Auto) Neut # (Auto) Lymph # (Auto) Dillon # (Auto) Eos # (Auto) Baso # (Auto) PT INR APTT Sodium Potassium Chloride Carbon Dioxide BUN Creatinine Estimated GFR BUN/Creatinine Ratio Glucose Calcium Magnesium Total Bilirubin AST ALT Alkaline Phosphatase Total Creatine Kinase CK-MB (CK-2) CK-MB (CK-2) Rel Index Troponin I Total Protein Albumin Globulin Albumin/Globulin Ratio Triglycerides 99 Cholesterol 171 LDL Cholesterol, Calc 95 HDL Cholesterol 56 Lipase Urine RBC None seen Urine WBC None seen Ur Squamous Epith Cells None seen Urine Bacteria None seen Ur Culture Indicated? Cult not indicated SARS-CoV-2 (PCR) Negative 08/01/22 08/02/22 08/02/22 18:15 03:55 03:55 WBC 10.3 RBC 4.64 Hgb 14.7 Hct 42.8 MCV 92.2 MCH 31.6 MCHC 34.3 RDW 13.3 Plt Count 248 Neut % (Auto) 94.4 H Lymph % (Auto) 4.7 L Dillon % (Auto) 0.8 L Eos % (Auto) 0.0 L Baso % (Auto) 0.1 Neut # (Auto) 9800 H Lymph # (Auto) 500 L Dillon # (Auto) 100 Eos # (Auto) 0 Baso # (Auto) 0 PT INR APTT Sodium Cancelled Potassium Cancelled Chloride Cancelled Carbon Dioxide Cancelled BUN Cancelled Creatinine Cancelled Estimated GFR Cancelled BUN/Creatinine Ratio Cancelled Glucose Cancelled Calcium Cancelled Magnesium Total Bilirubin AST ALT Alkaline Phosphatase Total Creatine Kinase CK-MB (CK-2) CK-MB (CK-2) Rel Index Troponin I < 0.012 Total Protein Albumin Globulin Albumin/Globulin Ratio Triglycerides Cholesterol LDL Cholesterol, Calc HDL Cholesterol Lipase Urine RBC Urine WBC Ur Squamous Epith Cells Urine Bacteria Ur Culture Indicated? SARS-CoV-2 (PCR) 08/02/22 03:55 WBC RBC Hgb Hct MCV MCH MCHC RDW Plt Count Neut % (Auto) Lymph % (Auto) Dillon % (Auto) Eos % (Auto) Baso % (Auto) Neut # (Auto) Lymph # (Auto) Dillon # (Auto) Eos # (Auto) Baso # (Auto) PT INR APTT Sodium 135 L Potassium 4.2 Chloride 103 Carbon Dioxide 25 BUN 18 Creatinine 0.90 Estimated GFR > 60 BUN/Creatinine Ratio 20.0 Glucose 141 H Calcium 8.5 Magnesium Total Bilirubin 0.6 AST 31 ALT 31 Alkaline Phosphatase 50 Total Creatine Kinase CK-MB (CK-2) CK-MB (CK-2) Rel Index Troponin I Total Protein 7.0 Albumin 3.9 Globulin 3.1 Albumin/Globulin Ratio 1.3 Triglycerides Cholesterol LDL Cholesterol, Calc HDL Cholesterol Lipase 2180 H D Urine RBC Urine WBC Ur Squamous Epith Cells Urine Bacteria Ur Culture Indicated? SARS-CoV-2 (PCR) [facility] Medical History Abnormal liver function test Acne (~1973) Allergic rhinitis Arthritis Barretts esophagus (~2010) Chronic low back pain Dyshidrotic eczema Epididymitis, right Fatigue GERD (gastroesophageal reflux disease) (~2010) Hiatal hernia History of acne Hypertension (~1999) Inguinal hernia Prostatitis, unspecified Situational anxiety Surgical History Anesthesia H/O hernia repair (~1989) History of cholecystectomy (~2011) History of esophagogastroduodenoscopy (EGD) History of Mason fundoplication (~2011) History of vasectomy Family History Father Cancer Hypertension Mother Cancer Brother Hypertension Social History household members: spouse Smoking Status: Never smoker Assessment & Plan Assessment & Plan narrative: 1. Acute pancreatitis -presents with abdominal pain, lipase over 25k, and inflammatory changes on imaging -normal LFTs, and history of gallbladder removal, no imaging evidence of recent stone -occassional EtOH use, but no abuse history, doubt etiology -triglycerides were normal -normal calcium -possible etiology of HCTZ medication, will discontinue for now. Irbesartan also implicated in pancreatitis (both are class III). -patient recently started a supplement, Tay HALEY fruits and Tay HALEY vegetables supplement. Advised to discontinue. -can stop IV fluids today. -ordered for pain regimen, and anti-nausea medications 2. Hypertension -hold oral medications for now. Hold HCTZ and irbesartan, amlodipine ordered instead of home felodipine given hospital formulary. 3. GERD, jackson's s/p mason fundoplication with gas bloat syndrome symptoms -restart PPI . CODE: Full Proxy: Ghada Cooper, Time Spent With Patient Critical Care time: I spent a total of [] minutes of critical care time on this patient's care today; this time is exclusive of procedural time. Quality VTE Deep Vein Thrombosis/Pulmonary Embolism Present on Admission: No
[2022-08-02 16:15] VITALS: BP 143/77; PULSE 71; RESP 20; TEMP 37.2; O2SAT 98
[2022-08-02] MEDS: AMLODIPINE 5 MG TABLET 10 MG PO (16:28)
[2022-08-02 20:00] VITALS: BP 135/74; PULSE 88; RESP 19; TEMP 37; O2SAT 95
[2022-08-03] VITALS: BP 131/74; PULSE 72; RESP 17; TEMP 36.8; O2SAT 94
[2022-08-03] MEDS: KETOROLAC 30 MG/ML VIAL 15 MG IV ×3 (00:06→12:37)
[2022-08-03 04:00] VITALS: BP 140/77; PULSE 74; RESP 17; TEMP 36.8; O2SAT 96
[2022-08-03 05:01] LABS: Add Manual Diff / Slide Review NO; Basophils Absolute Auto 0 /uL (0-100); Basophils Percent Auto 0.1 % (0-2); Eosinophils Absolute Auto 0 /uL (0-450); Eosinophils Percent Auto 0.2 % (2-4); Hematocrit 40.6 % (41-53); Hemoglobin 13.5 g/dL (13.5-17.5); Lymphocytes Absolute Auto 500 /uL (1100-4500); Lymphocytes Percent Auto 3.7 % (25-40); Mean Corpuscular HGB Conc 33.4 % (30-36); Mean Corpuscular Hemoglobin 31.2 PG (26-34); Mean Corpuscular Volume 93.5 fL (80-100); Monocytes Absolute Auto 1100 /uL (0-900); Monocytes Percent Auto 7.8 % (3-14); Neutrophils Absolute Auto 12500 /uL (1500-7000); Neutrophils Percent Auto 88.2 % (50-75); Platelet Count 235 X10^3/uL (150-400); Red Blood Cell Count 4.34 X10^6/uL (4.5-5.9); Red Cell Distribution Width 13.5 % (11.6-14.8); White Blood Cell Count 14.2 X10^3/uL (4.5-11.0)
[2022-08-03 05:05] LABS: BUN Creatinine Ratio 22.6 (6-22); Blood Urea Nitrogen 19 mg/dL (9-20); Calcium 8.1 mg/dL (8.4-10.2); Carbon Dioxide 24 mmol/L (22-32); Chloride 107 mmol/L (98-107); Estimated Glomerular Filt Rate > 60 mL/min (>60); Glucose 112 mg/dL (70-100); HEMOLYSIS 28 (0-50); Magnesium 1.9 mg/dL (1.6-2.3); Potassium 3.8 mmol/L (3.4-5.1); Sodium 136 mmol/L (137-145)
[2022-08-03 05:18] LABS: Lipase 1072 U/L (23-300)
[2022-08-03] MEDS: PANTOPRAZOLE DR 20 MG TABLET PO (07:00)
[2022-08-03 07:30] VITALS: BP 134/78; PULSE 76; RESP 21; TEMP 36.7; O2SAT 93
--- NOTE | 2022-08-03 08:19 | PM.PN.1 ---
Subjective Subjective Interval history: 56-year-old male with hypertension, GERD status post Mason fundoplication and cholecystectomy, as well as Chinchilla's esophagus who was admitted with acute pancreatitis. It was felt to be secondary to hydrochlorothiazide. Patient reports he is feeling better overall. He was able to eat a small meal last night and tolerated it well. He is planning to have oatmeal this morning. He did receive some IV Toradol this morning but has not required any oxycodone. He is hopeful he will be able to go home later today. Exam Vital Signs (past 8 hours): - 08/03/22 04:00 08/03/22 07:30 Temperature 98.3 F 98.0 F Pulse Rate 74 76 Respiratory Rate 17 21 Blood Pressure 140/77 134/78 Pulse Oximetry 96 93 Oxygen Flow Rate 0 Oxygen Delivery Method Room Air Oxygen Flow Rate 0 Narrative Exam Narrative: GEN: Very pleasant middle-aged male, Alert and oriented x 3, NAD HEENT:NC, Face symmetric CHEST: Respiratory excursions symmetric, CTAB CV: RRR, no M/R/G ABD: Soft, mild mid epigastric tenderness with palpation,ND, BT present in all 4 quadrants, no organomegaly or masses EXTR: warm, well perfused, no C/C/E SKIN: warm and dry, no rash NEURO: Alert and oriented x 3, nonfocal Objective Labs 08/03/22 04:45 08/03/22 04:45 Labs: Laboratory Results - last 24 hr 08/03/22 08/03/22 08/03/22 04:45 04:45 04:45 WBC 14.2 H RBC 4.34 L Hgb 13.5 Hct 40.6 L MCV 93.5 MCH 31.2 MCHC 33.4 RDW 13.5 Plt Count 235 Neut % (Auto) 88.2 H Lymph % (Auto) 3.7 L [place] % (Auto) 7.8 Eos % (Auto) 0.2 L Baso % (Auto) 0.1 Neut # (Auto) 57516 H Lymph # (Auto) 500 L [place] # (Auto) 1100 H Eos # (Auto) 0 Baso # (Auto) 0 Sodium 136 L Potassium 3.8 Chloride 107 Carbon Dioxide 24 BUN 19 Creatinine 0.84 Estimated GFR > 60 BUN/Creatinine Ratio 22.6 H Glucose 112 H Calcium 8.1 L Magnesium 1.9 Lipase 1072 H D [facility] Medical History Abnormal liver function test Acne (~1973) Allergic rhinitis Arthritis Barretts esophagus (~2010) Chronic low back pain Dyshidrotic eczema Epididymitis, right Fatigue GERD (gastroesophageal reflux disease) (~2010) Hiatal hernia History of acne Hypertension (~1999) Inguinal hernia Prostatitis, unspecified Situational anxiety Surgical History Anesthesia H/O hernia repair (~1989) History of cholecystectomy (~2011) History of esophagogastroduodenoscopy (EGD) History of Mason fundoplication (~2011) History of vasectomy Family History Father Cancer Hypertension Mother Cancer Brother Hypertension Social History household members: spouse Smoking Status: Never smoker Assessment & Plan Assessment & Plan narrative: 1. Acute pancreatitis Initial lipase was over 25,000. It is now down to 1072. Overall he is doing well and tolerating full liquid diet. He is hopeful to be able to go home later today. Suspected etiology is the hydrochlorothiazide he was using for his blood pressure. He is post cholecystectomy, triglycerides were 99, and he drinks alcohol only occasionally. 2. GERD, status post Mason fundoplication, complicated by Chinchilla's esophagus Continue a PPI. 3. Hypertension Blood pressures are normotensive. On an outpatient basis he was on felodipine, HCTZ, irbesartan, and spironolactone. Hydrochlorothiazide has been discontinued. Will need follow-up with his PCP. 4. Leukocytosis Likely reactive and related to his pancreatitis. Code status Full Prophylaxis On Lovenox Disposition Possible discharge later today. Time Spent With Patient Critical Care time: I spent a total of [] minutes of critical care time on this patient's care today; this time is exclusive of procedural time. Quality VTE Deep Vein Thrombosis/Pulmonary Embolism Present on Admission: No
--- NOTE | 2022-08-03 10:40 | DIET.PN1 ---
Dietary Progress Note Assessment: Pt with questions regarding low fat diet. h/o cholecystectomy and admitted with pancreatitis, potentially r/t HCTZ. Discussed label reading and low fat diet. Answered questions and provided NCM handout. Pt interested in OP RD visit. Discussed next steps regarding this. Ht: 177.8 cm Wt: 94.5 kg BMI: 29.9 Last BM: 08/01/22 (08/01/22 20:43) MNA: 14 Manpreet Score: 22 Diet: 08/02/22 Dinner Low/restricted Fat Diet Diet Modifications: Dietary Fat allowed: 25 grams (pancreatitis) Nutrition Percent Meal Consumed 90 08/02/22 09:50 Electronically Signed by: Ciera Saha 08/03/22 10:40 Clinical Dietitian [address] [id number]
[2022-08-03 12:00] VITALS: BP 131/84; PULSE 73; RESP 20; TEMP 36.9; O2SAT 98
--- NOTE | 2022-08-05 16:22 | P.DS_ITS ---
History of Present Illness History of Present Illness Chief complaint: chest and stomach pains Narrative: Per history and physical: Mr. Cooper is a 56M with PMH of HTN, Chinchilla's, GERD, s/p Niseem fundoplication and cholecystectomy who presents with epigastric pain radiation to his back. No fevers/chills. No vomiting, diarrhea, blody stools. Olga was a decade ago and has controlled his heartburn well. He does not regularly drink alcohol, but had a couple drinks a two days ago along with a portion of an edible. He has had no new medications and has taken his blood pressure medications for years, he does take HCTZ. His recently did buy some pill supplements, but he is not sure the ingredients in these and will try to get the information. He states he intermittently has difficulty belching after the Mason's procedure, and this also occurred today. In the ED workup was done, vitals notable for afebrile, heart rate in 80s, blood pressure 150s/80s. Labs notable for WBC 11, hgb 15, plts 270. Creatinine 1.00. Lipase 76184. AST/ALT 35/33, bili 0.6. Trop negative x2. CT abdomen showed pancreatic inflammatory changes with no dutal dilation or pseudocysts. He was given fluids and pain medications and admitted for further treatment. Discharge Providers Provider Date of admission: 08/01/22 20:08 Discharge Date: 08/03/22 Primary care physician: ROSALBA Oliva Discharge provider: Dahiana Zapien MD Summary Hospital Course Discharge Diagnosis: Acute pancreatitis, likely hydrochlorothiazide induced GERD, status post Mason fundoplication, complicated by Chinchilla's esophagus Hypertension Leukocytosis, felt to be reactive and secondary to pancreatitis Hospital Course: Patient presented to the emergency department with acute onset of abdominal pain. Did alcoholic beverages 2 days prior to admission as well as a portion of an edible. So was noted to have been on hydrochlorothiazide for hypertension. Abdominal ultrasound revealed limited visualization of the pancreas. No associated fluid. Chest x-ray revealed low lung volumes but no acute radiographic abnormality. Abdominal pelvic CT revealed pancreatic inflammatory change most consistent with pancreatitis. No ductal dilatation or pseudocyst. On presentation to the emergency department his lipase was over 25,000. On the date of discharge, it was 1072. He was doing well and tolerating a full liquid diet. He was noted to be post cholecystectomy, had normal triglycerides, and typically reports he only drinks occasionally. Was ultimately felt that his pancreatitis may have been secondary to hydrochlorothiazide. This was discontinued prior to discharge. He will follow-up with his PCP for further adjustments of antihypertensive therapy on an outpatient basis. Patient was feeling very good, ambulating the halls independently, tolerating food and liquids at the time of discharge. He was discharged in stable condition. Status at Discharge Cognitive/behavioral status at discharge: oriented Overall status at discharge: patient is progressing back to baseline Time Spent with Patient Time spent: Less than 30 minutes Exam Vital Signs (past 8 hours): Oxygen Delivery Method Room Air Oxygen Flow Rate 0 Narrative Exam Narrative: See progress note from the date of discharge Objective Labs 08/03/22 04:45 08/03/22 04:45 [facility] Medical History Abnormal liver function test Acne (~1973) Allergic rhinitis Arthritis Barretts esophagus (~2010) Chronic low back pain Dyshidrotic eczema Epididymitis, right Fatigue GERD (gastroesophageal reflux disease) (~2010) Hiatal hernia History of acne Hypertension (~1999) Inguinal hernia Prostatitis, unspecified Situational anxiety Surgical History Anesthesia H/O hernia repair (~1989) History of cholecystectomy (~2011) History of esophagogastroduodenoscopy (EGD) History of Mason fundoplication (~2011) History of vasectomy Family History Father Cancer Hypertension Mother Cancer Brother Hypertension Social History household members: spouse Smoking Status: Never smoker Discharge Plan Discharge Plan Patient Disposition: Home Provider Discharge Comment: Discontinue your HCTZ. Follow-up with Vanessa Kidd regarding your blood pressure and need for adjusting medications. Goal f/u within 1 week. Please monitor your BP twice daily and write it down for that visit. Continue a low-fat diet. Avoid large fatty meals. If pain returns, resume a full liquid or clear liquid diet until improved. Return to the ED for inability to hold down food/fluids, uncontrolled pain, fevers or shortness of breath. Discharge orders & Medications Prescriptions: New pantoprazole 20 mg Tablet,Delayed Release (Dr/Ec) 20 mg PO 0700 Qty: 30 0RF oxycodone 5 mg Tablet 5 mg PO Q3H PRN (Reason: Pain, Moderate (4-6)) Qty: 20 0RF ondansetron 4 mg tablet,disintegrating 4 mg PO Q8H Qty: 30 0RF Continued spironolactone 25 mg tablet 25 mg PO DAILY 90 Days Qty: 90 3RF Hold Instructions: bp low, fatigue Rx Instructions: Take 1 tab each morning for blood pressure. irbesartan 300 mg tablet 300 mg PO DAILY Qty: 90 3RF clindamycin phosphate 1 % gel See Rx Instructions .ROUTE .COMPLEX Qty: 30 3RF Dose Instruction: APPLY TO AFFECTED AREA TWO TIMES DAILY USE WITH BENZOYL PEROXIDE Rx Instructions: APPLY TO AFFECTED AREA TWO TIMES DAILY USE WITH BENZOYL PEROXIDE benzoyl peroxide [Acne Medication] 5 % gel See Rx Instructions .ROUTE .COMPLEX Qty: 42.5 3RF Dose Instruction: USE 1 APPLICATION TOPICALLY TWO TIMES DAILY - USE WITH CLINDAMYCIN Rx Instructions: USE 1 APPLICATION TOPICALLY TWO TIMES DAILY - USE WITH CLINDAMYCIN felodipine 10 mg tablet extended release 24 hr See Rx Instructions .ROUTE .COMPLEX Qty: 90 3RF Dose Instruction: TAKE ONE TABLET BY MOUTH ONCE DAILY AT BEDTIME FOR HYPERTENSION Rx Instructions: TAKE ONE TABLET BY MOUTH ONCE DAILY AT BEDTIME FOR HYPERTENSION Discontinued hydrochlorothiazide 25 mg tablet See Rx Instructions .ROUTE .COMPLEX Qty: 90 3RF Dose Instruction: TAKE ONE TABLET BY MOUTH EVERY MORNING FOR HYPERTENSION Rx Instructions: TAKE ONE TABLET BY MOUTH EVERY MORNING FOR HYPERTENSION Follow up/Referrals: Vanessa Kidd ARNP [Primary Care Provider] - Discharge Health Status Multidrug resistant organism: No MDRO Diet/Activity/Treatments Diet: Low-fat Activity: As tolerated Oxygen: N/a Visit Report/Discharge Packet Stand Alone Forms: Patient Portal/API, Stroke Signs & Symptoms Discharge Data Primary Care Provider: Vanessa Kidd Quality VTE Deep Vein Thrombosis/Pulmonary Embolism Present on Admission: No
== END 2022-08-03 12:55 | disposition home or self-care (01) | DRG 440 ==
LOC: ED 20:08 → AC 20:09 → ICU 20:31
PROVIDERS: Internal Medicine; Nurse Practitioner Family; Admitting Provider Internal Medicine; Emergency Provider Emergency Medicine; Family Provider Family Medicine; PCP Nurse Practitioner; Referring Provider Emergency Medicine; Visit Provider Internal Medicine
DX: K85.30 Drug induced acute pancreatitis without necrosis or infection (principal); T50.2X5A Adverse effect of carbonic-anhydrase inhibitors, benzothiadiazides and other diuretics, initial encounter; K22.70 Barrett's esophagus without dysplasia; I10 Essential (primary) hypertension; K21.9 Gastro-esophageal reflux disease without esophagitis; Z20.822 Contact with and (suspected) exposure to COVID-19
CPT/HCPCS: 36415; 71045; 74177; 76705; 80048; 80053; 80061; 81003; 81015; 82550; 82553; 83690; 83735; 84484; 85025; 85610; 85730; 87635; 93005; 96374; 96375; 99284; 99285; C9803; C9113; J1200; J1650; J1885; J2270; J2405; J2930; Q9967

== ENCOUNTER → 2022-08-08 17:03 | Outpatient (CLI) | payer OTHER, SELFPAY ==
[2022-08-01 20:43] VITALS: BMI 29.9
[2022-08-08 17:30] LABS: Add Manual Diff / Slide Review NO; Basophils Absolute Auto 0 /uL (0-100); Basophils Percent Auto 0.3 % (0-2); Eosinophils Absolute Auto 100 /uL (0-450); Eosinophils Percent Auto 0.8 % (2-4); Hematocrit 39.6 % (41-53); Hemoglobin 13.1 g/dL (13.5-17.5); Lymphocytes Absolute Auto 900 /uL (1100-4500); Mean Corpuscular HGB Conc 33.2 % (30-36); Mean Corpuscular Hemoglobin 30.9 PG (26-34); Mean Corpuscular Volume 93.1 fL (80-100); Monocytes Absolute Auto 1200 /uL (0-900); Monocytes Percent Auto 10.4 % (3-14); Neutrophils Absolute Auto 9300 /uL (1500-7000); Neutrophils Percent Auto 80.5 % (50-75); Platelet Count 398 X10^3/uL (150-400); Red Blood Cell Count 4.25 X10^6/uL (4.5-5.9); Red Cell Distribution Width 13.6 % (11.6-14.8); White Blood Cell Count 11.6 X10^3/uL (4.5-11.0)
[2022-08-08 17:47] LABS: Alanine Aminotransferase 58 IU/L (<50); Albumin 3.7 g/dL (3.5-5.0); Albumin Globulin Ratio 1.1 (1.0-2.8); Alkaline Phosphatase 94 U/L (38-126); Amylase 40 U/L (30-110); Aspartate Aminotransferase 42 IU/L (17-59); BUN Creatinine Ratio 18.1 (6-22); Bilirubin Total 0.6 mg/dL (0.2-1.3); Blood Urea Nitrogen 15 mg/dL (9-20); Calcium 8.6 mg/dL (8.4-10.2); Carbon Dioxide 26 mmol/L (22-32); Chloride 102 mmol/L (98-107); Estimated Glomerular Filt Rate > 60 mL/min (>60); Globulin 3.5 g/dL (1.7-4.1); Glucose 102 mg/dL (70-100); HEMOLYSIS < 15 (0-50); Lipase 44 U/L (23-300); Potassium 3.6 mmol/L (3.4-5.1); Sodium 136 mmol/L (137-145); Total Protein 7.2 g/dL (6.3-8.2)
== END ==
PROVIDERS: Family Provider Family Medicine; PCP Nurse Practitioner; Referring Provider Nurse Practitioner; Visit Provider Nurse Practitioner
DX: K85.90 Acute pancreatitis without necrosis or infection, unspecified (principal)
CPT/HCPCS: 36415; 80053; 82150; 83690; 85025

== ENCOUNTER → 2022-10-03 12:30 | Outpatient (CLI) | payer OTHER, SELFPAY ==
[2022-09-03 16:11] VITALS: BMI 29.9
--- NOTE | 2022-10-03 12:32 | DI.ECHO.S_ITS ---
[place] +---------+ Hospital +---------+ : : [address] : : [place] : : : : [id number] : : : : Phone: [phone] Echocardiogram Report + + :Name: JIGAR VARGHESE Study Date: 10/03/2022 Height: 70 in : :[facility] ReadingLocation: Weight: 195 lb : : Gender: Male BSA: 2.1 m2 : :: 1965 Age: 56 yrs BP: 135/72 mmHg: :Reason For Study: HYPERTENSION : :Ordering Physician: LINDSAY, : :JANA Performed By: Iesha Bradley : :Referring: JANA MONTOYA : + + Interpretation Summary The ejection fraction is estimated to be 55-60%. Diastolic parameters suggest probable normal left ventricular diastolic function and normal filling pressures. The right ventricular systolic function is normal. Right ventricular systolic pressure is estimated to be 26 mmHg plus the clinically estimated CVP which cannot be estimated on this exam. No significant valvular abnormality. Procedure: A two-dimensional transthoracic echocardiogram with color flow and Doppler was performed. The study quality was technically adequate. There is no prior echocardiogram noted for this patient. The patient was in sinus bradycardia with heart rates between 52-62 bpm during the exam. Left Ventricle: The left ventricle is normal in size and wall thickness. The ejection fraction is estimated to be 55-60%. There are no obvious focal wall motion abnormalities noted but poor endocardial definition reduces the sensitivity for the detection of such. Diastolic parameters suggest probable normal left ventricular diastolic function and normal filling pressures. Right Ventricle: The right ventricle is borderline dilated. The right ventricular systolic function is normal. Atria: The left atrial size is normal. Right atrial size is normal. There is no Doppler evidence for an interatrial shunt. Mitral Valve: The mitral valve is normal in structure and function. There is trace mitral regurgitation. Aortic Valve: The aortic valve is trileaflet. The aortic valve opens well. There is no aortic valve stenosis. No aortic regurgitation is present. Tricuspid Valve: The tricuspid valve is normal in structure and function. There is trace tricuspid regurgitation. Right ventricular systolic pressure is estimated to be 26 mmHg plus the clinically estimated CVP which cannot be estimated on this exam. Pulmonic Valve: The pulmonic valve leaflets are thin and pliable; valve motion is normal. There is no pulmonic valvular regurgitation. Great Vessels: The aortic root is normal size. The dimensions of the ascending aorta are normal. The inferior vena cava was not well visualized. Pericardium/ Pleura There is no pericardial effusion. There is no pleural effusion. MMode/2D Measurements & Calculations LVIDd: 4.9 cm LVOT diam: 2.2 cm LVIDs: 3.1 cm Ao root diam: 3.3 cm FS: 36.5 % asc Aorta Diam: 3.5 cm EPSS: 0.92 cm Ao Arch Diam (Prox Trans): 3.3 cm IVSd: 0.77 cm LVPWd: 0.69 cm LV connell. diameter/BSA (cm/m^2): 2.4 LV sys. diameter/BSA (cm/m^2): 1.5 LA A2 area: 21.7 cm2 RA long axis: 5.1 cm LA A4 area: 16.9 cm2 RA area: 13.8 cm2 LA length (vol): 5.0 cm RA vol: 31.9 ml LA vol: 62.3 ml RA : 15.5 ml/m2 LA vol index: 30.2 ml/m2 RVD1 (basal): 4.4 cm TAPSE: 2.2 cm Doppler Measurements & Calculations Ao V2 max: 137.8 cm/sec LVOT Max Tre: 124.3 cm/sec Ao V2 mean: 92.2 cm/sec LV V1 max P.2 mmHg Ao max P.6 mmHg LV V1 VTI: 27.0 cm Ao mean P.8 mmHg JOSE(I,D): 3.4 cm2 Ao V2 VTI: 29.5 cm JOSE(V,D): 3.4 cm2 sev ratio: 0.92 JOSE indexed to BSA (cm^2/m^2): 1.7 MV E max tre: 94.6 cm/sec TR max tre: 254.9 cm/sec MV A max tre: 74.7 cm/sec TR max P.0 mmHg MV E/A: 1.3 PA V2 max: 109.4 cm/sec Med Peak E' Tre: 10.4 cm/sec PA V2 mean: 78.6 cm/sec E/E' med: 9.1 PA mean P.7 mmHg Lat Peak E' Tre: 13.3 cm/sec PA pr(Accel): 22.5 mmHg E/E' lat: 7.1 E/e' average: 8.1 MV dec time: 0.22 sec [facility] 100.7 ml Reading Physician:DEVIN
== END ==
PROVIDERS: Family Provider Family Medicine; PCP Nurse Practitioner; Referring Provider Nurse Practitioner; Visit Provider Nurse Practitioner
DX: I10 Essential (primary) hypertension (principal)
CPT/HCPCS: 93306